=== PATIENT | female | born 2000 | race Caucasian/White ===

== ENCOUNTER 2024-12-05 17:37 | Emergency (ER) | payer MEDICAID, SELFPAY ==
--- NOTE | ~2024-12-05 | US_ITS ---
CLINICAL HISTORY: RLQ pain, cyst, r o torsion US pelvis transabdominal with Doppler Comparison: CT/SR - CT ABDOMEN PELVIS W IV CON - 12/06/24 00:29 EDT Findings: Uterus measures 8.2 x 4.1 x 4.4 cm. There is no uterine mass. Endometrium is within normal limits measuring 4 mm in thickness. Right ovary measures 5.5 x 4.2 x 5.6 cm. There is a simple right ovarian cyst measuring 4.4 x 4.1 x 4.7 cm. There is normal color Doppler and arterial/venous spectral tracings within the right ovary. Left ovary measures 2.6 x 1.4 x 2.5 cm. There is no left adnexal mass or fluid collection. There is normal color Doppler and arterial/venous spectral tracings within the left ovary. There is no free fluid in the pelvis. IMPRESSION: Simple right ovarian cyst measuring up to 4.7 cm. No ovarian torsion. Recommendations for f/u of simple ovarian cyst: (1) Pre-menopause: <= 5 cm No follow-up imaging recommended >5 cm - <=7 cm US f/u within 2-6 months recommended >7 cm US f/u within 2-6 months recommended (1) Simple Adnexal Cysts: U Consensus Conference Update on Follow-up and Reporting. Radiology. 2019;293 (2):359-371. This document has been electronically signed by: Matthias Lopes MD on 12/06/2024 03:10:19
--- NOTE | ~2024-12-05 | XR_ITS ---
CLINICAL HISTORY: CONSTIPATION 1 view abdomen Comparison: None provided Findings: No pneumoperitoneum or pneumatosis. No abnormal calcifications. No acute fractures. Large colonic stool burden. Nonobstructive bowel-gas pattern. IMPRESSION: Large colonic stool burden. This document has been electronically signed by: Waldo Dave MD on 12/05/2024 18:31:50
--- NOTE | ~2024-12-05 | CT_ITS ---
CLINICAL HISTORY: RLQ tender, nausea, chills, r o appy CT abdomen and pelvis with contrast Comparison: None provided Findings: The lung bases are clear. The liver, gallbladder, pancreas, spleen, adrenal glands, and kidneys are unremarkable. There is a [id number] amount of stool in the colon greatest in the right hemicolon. There is no bowel obstruction. The appendix is normal. There is no free fluid or free air. There is a 4.7 x 4.4 cm right ovarian cyst with Hounsfield units measuring about 26 which is greater than simple fluid. Uterus and left ovary are unremarkable. The bladder is unremarkable. There are no enlarged lymph nodes. The aorta and IVC are normal. There is no fracture or suspicious lytic or sclerotic lesion. IMPRESSION: 4.7 cm right ovarian cyst possibly hemorrhagic. Pelvic ultrasound would be recommended if there is any clinical concern for ovarian torsion. This document has been electronically signed by: Matthias Lopes MD on 12/06/2024 01:25:23
--- OUTSIDE RECORDS SUMMARY | 2024-12-05 15:40 | XMS_ITS | Encounter Summary ---
Author Organization [employer] Address [address] [facility] [address] [address] Care Team Providers Care Drilling Manager Name Role Phone Denisse Wood NP Primary Care Provider [phone] Reason for Visit * Reason Comments sick visit Encounter Details Date Type Department Care Team ([facility] st Contact Info) Description 12/05/2024 3:40 PM EDT Office Visit [facility] [address] [place] [address] Trev Dominguez MD [address] [place] [address] Right lower quadrant abdominal pain Social History Tobacco Use Types Packs/Day Years Used Date Smoking Tobacco: Never Passive Smoke Exposure: Never Smokeless Tobacco: Never Tobacco Cessation:Counseling Given: Not Answered Alcohol Use Standard Drinks/Week Comments Never 0 (1 standard drink = 0.6 oz pur e alcohol) Depression Answer Date Recorded Patient Health Questionnaire-9 Score 6 11/09/2024 Patient Health Questionnaire-9 Score 6 11/09/2024 Last PHQ-9: Questionnaire Data Not on file 0 11/09/2024 Housing Stability Answer Date Recorded What is your housing situation today? I have breezy robert 11/09/[address] you li ve. Do you have problems with any of the following? Pests such as bugs, ants, or mice;Mold 11/09/2024 Food Insecurity Answer Date Recorded Within the past 12 months, y ou worried that your food would run out before you got money to buy more: Never True 11/09/2024 Within the past 12 months,th e food you bought just didn't last and you didn't have enough money to get more: Never True Transportation Answer Date Recorded In the past 12 months, has l ack of transportation kept you from medical appts, meetings, work or from getting things needed for daily living? No 11/09/2024 Utilities Answer Date Recorded In the past 12 months, has t he electric, gas, oil or water company threatened to shut off services in your home? Yes 11/09/2024 Depression Answer Date Recorded Patient Health Questionnaire-2 Score 1 11/09/2024 Internet Access Answer Date Recorded Internet Access Q1 Yes 11/09/2024 Internet Access Q2 Not on file 11/09/2024 Comments No Sex and Gender Information Value Date Recorded Sex Assigned at Female 05/12/2023 2:52 PM EDT Legal Sex Female 2:49 PM EDT Gender Identity Female 05/12/2023 2:52 PM EDT Sexual Orientation Don't know 05/12/2023 2: 52 PM EDT documented as of this encounter Last Filed Vital Signs Vital Sign Reading Time Taken Comments Blood Pressure 138/87 12/05/2024 4:08 PM EDT Pulse 85 12/05/2024 4:08 PM EDT Temperature 37.3 C (99.2 F) 12/05/2024 4:08 PM EDT Respiratory Rate 18 12/05/2024 4:08 PM EDT Oxygen Saturation 99% 12/05/2024 4:08 PM EDT Inhaled Oxygen Concentration - - Weight 55.6 kg (122 lb 9.6 oz) 12/05/2024 4:08 P M EDT Height 167 cm (5' 5.75 ) 12/05/2024 4:08 PM EDT Body Mass Index 19.94 12/05/2024 4:08 PM EDT documented in this encounter Progress Notes * Trev Dominguez MD - 12/05/2024 3:40 PM EDT Subjective Patient ID: Adwoa Jara is a 24 y.o. female. HPI Adwoa has a history of Crohn's disease of the large and small intestine, IBS, followed by Dr. Vero Gale of [facility]. She had onset 3 days ago of pain across lower abdominal and to right of umbilicus. Started as dull ache, yesterday pain worsened, became constant, is now sharp hurts to push on it, feels bloated, constipated, has chills today. Had nausea yesterday, took Zofran with some relief. Tylenol helps chills, doesn't help pain much. Appetite is OK today. No fever, urinary symptoms. No h/o abdominal surgery. Lives with boyfriend. LMP=3 weeks ago. Uses [employer]. Works at [employer] in [employer] in [place]. Never smoked. Occasional EtOH. Patient Active Problem List Diagnosis Date Noted PND (post-nasal drip) 11/09/2024 Blurry vision 11/09/2024 Crohn's disease (CMS/HCC) ([facility]) 2024 Irregular periods 2024 Chronic maxillary sinusitis 2024 Crohn's disease of both small and large intestine without complication ([facility]) 10/24/2023 Healthcare maintenance 10/24/2023 Seasonal allergic rhinitis due to pollen 10/24/2023 HSV infection 10/23/2023 Cervicitis 05/10/2023 Vulvar burning 05/10/2023 Herpes simplex infection of genitourinary system 02/14/2021 IBS (irritable bowel syndrome) 09/29/2018 Patient Active Problem List Diagnosis Date Noted PND (post-nasal drip) 11/09/2024 Blurry vision 11/09/2024 Crohn's disease (CMS/HCC) ([facility]) 2024 Irregular periods 2024 Chronic maxillary sinusitis 2024 Crohn's disease of both small and large intestine without complication ([facility]) 10/24/2023 Healthcare maintenance 10/24/2023 Seasonal allergic rhinitis due to pollen 10/24/2023 HSV infection 10/23/2023 Cervicitis 05/10/2023 Vulvar burning 05/10/2023 Herpes simplex infection of genitourinary system 02/14/2021 IBS (irritable bowel syndrome) 09/29/2018 The following portions of the chart were reviewed this encounter and updated as appropriate: Review of Systems Constitutional: Negative for fever. Respiratory: Negative for shortness of breath. Cardiovascular: Negative for chest pain. Gastrointestinal: Positive for abdominal pain, constipation and nausea. Negative for vomiting. Genitourinary: Negative for dysuria. Skin: Negative for rash. Neurological: Negative for headaches. Objective Physical Exam Constitutional: Appearance: Normal appearance. HENT: Right Ear: Tympanic membrane, ear canal and external ear normal. Left Ear: Tympanic membrane, ear canal and external ear normal. Nose: Nose normal. Mouth/Throat: Mouth: Mucous membranes are moist. Pharynx: Oropharynx is clear. Eyes: Conjunctiva/sclera: Conjunctivae normal. Pupils: Pupils are equal, round, and reactive to light. Cardiovascular: Rate and Rhythm: Normal rate and regular rhythm. Heart sounds: No murmur heard. Pulmonary: Effort: Pulmonary effort is normal. Breath sounds: Normal breath sounds. Abdominal: General: Abdomen is flat. Palpations: Abdomen is soft. Tenderness: There is abdominal tenderness (RLQ). There is guarding and rebound. Comments: Positive psoas and obturator signs Musculoskeletal: General: Normal range of motion. Cervical back: No tenderness. Skin: Findings: No rash. Neurological: Mental Status: She is alert. Gait: Gait is intact. Psychiatric: Mood and Affect: Mood normal. Behavior: Behavior normal. Procedures Assessment/Plan Diagnoses and all orders for this visit: Right lower quadrant abdominal pain U/a and UCG neg. ? Acute appendicitis versus Crohn's flare versus pain of ovarian origin versus? Adwoa is going to the ED now. - POCT Urinalysis - POCT Urine documented in this encounter Plan of Treatment Upcoming Encounters Date Type Department Care Team (Late st Contact Info) Description 01/08/2025 1:00 PM EST Procedure Visit [facility] [address] [place] [address] Denisse Wood NP [address] [place] [address] 04/08/2025 1:00 PM EST Office Visit [facility] [address] [place] [address] Olamide Betancur, HARSH [address] [place] [address] documented as of this encounter Procedures Procedure Name Priority Date/Time Associated Diagnosis Comments POCT , URINE Routine 12/05/2024 4:27 PM EDT Right lower quadrant abdominal pain POCT URINALYSIS DIPSTICK Routine 12/05/2024 4:27 PM EDT Right lower quadrant abdominal pain documented in this encounter Results * POCT Urine (12/05/2024 4:27 PM EDT) Preg Test, Ur Negative Negative, Indeterminate, None Detected, Invalid, Specimen unsatisfactory for evaluation, Weakly Positive, 2+ QC Media Lot # [id number] Lot# Expiration Date Urine 12/05/2024 4:27 PM EDT us Trev Dominguez MD POINT OF CARE TEST ENTER/EDIT OR DERABLES Final Result * POCT Urinalysis (12/05/2024 4:27 PM EDT) Color, UA Light Yellow Clarity, UA Clear Glucose, UA Negative Bilirubin, UA Negative Ketones, UA Negative Spec Grav, UA 1.015 Blood, UA Negative Negative, None Detected pH, UA 6.5 Protein, UA Negative Urobilinogen, UA 0.2 Leukocytes, UA Negative Negative, Rare, Trace Nitrite, UA Negative Negative, None Detected Appearance, UA light yellow Urine (Urine, Random) 12/05/2024 4:27 PM EDT us Trev Dominguez MD POINT OF CARE TEST ENTER/EDIT OR DERABLES Final Result documented in this encounter Visit Diagnoses Diagnosis Right lower quadrant abdominal pain documented in this encounter Additional Health Concerns Assessment Noted Time PHQ-9 Depression Total Score: 6 11/10/19 25 4:28 PM EDT documented as of this encounter Care Teams Drilling Manager Relationship Specialty Start Date End Date Denisse Wood NP [address] [place] [id number] PCP - General Family Medicine 10/24/23 documented as of this encounter
[2024-12-05 17:56] VITALS: BP 148/79; PULSE 77; RESP 16; TEMP 36.8; O2SAT 97
--- NOTE | 2024-12-05 17:56 | ED_ITS ---
HPI - Abdominal Pain General Chief Complaint: Abdominal Pain Stated Complaint: right side abd pain/appendicitis? from UC Time Seen by Provider: 12/05/24 21:53 History of Present Illness ED Provider: Venkatesh Rodriguez MD HPI narrative: We will 24-year-old female with no surgical history. She has a history of irregular menses 2 months ago started a new progesterone only oral contraceptive. She feels she had her period about 3 weeks ago which was unremarkable. She started getting some lower abdominal pain 3-4 nights ago intermittent mild initially today got a lot worse. Patient went to the urgent care and was sent here for evaluation. She does report chills no vomiting. No burning dysuria or flank pain. Small BM and passing flatus today. Related Data Previous Rx's ?Medication ?Instructions ?Recorded docusate sodium 100 mg capsule 100 mg PO BID #20 caps 12/06/24 (Colace) polyethylene glycol 3350 17 17 g PO DAILY #119 grams 1 gram/dose oral powder (Miralax) Allergies Allergy/AdvReac Type Severity Reaction Status Date / Time No Known Allergies Allergy Verified 12/05/24 17:59 [facility] Social History Social History Substance Use Type: Hallucinogens and Marijuana Physical Exam ED Exam Exam: EXAM: Gen: Alert, awake, well appearing, well hydrated. Head: Atraumatic Eyes: Anicteric, Normal conjunctiva. ENT: Moist mucosa, no pallor. ? Neck: Supple. Skin: ?No observable rash or bruising on exposed or examined skin Respiratory: Breathing comfortably, No distress.Clear to auscultation bilaterally, symmetric chest expansion, No wheeze, rales, ronchi. Cardiovascular: Regular rate and rhythm. No murmurs or rub. Well perfused periphery, warm extremities. No edema. ? Abdominal: Moderate right lower quadrant tenderness. Soft, no objective distension. No palpable masses or obvious organomegaly. ?No guarding, no rebound tenderness or other peritoneal findings. : No flank tenderness. Pelvic deferred Neuro: Alert. Gross movement of all extremities intact. ? Psych: Calm. Cooperative. MSK: No grossly visible deformity. Vital signs: See flowsheet Vital Signs: Vital Signs - 24 hr 12/05/24 17:56 12/05/24 22:04 12/06/24 01:15 Temperature 98.2 F 98.4 F 98 F Pulse Rate 77 93 78 Respiratory Rate 16 18 16 Blood Pressure 148/79 H 122/81 109/68 Pulse Oximetry 97 100 96 Oxygen Delivery Method Room Air Room Air Room Air 12/06/24 02:56 Temperature 98 F Pulse Rate 78 Respiratory Rate 16 Blood Pressure 109/68 Pulse Oximetry 96 Oxygen Delivery Method Room Air BMI result Body Mass Index 20.0 Course Course Course Narrative: This is a Rapid Medical Examination (RME) performed by Shelia Diehl PA-C in triage. Full HPI, ROS, assessment and treatment plan per primary provider in the Main ED. Hx: 24 yo F hx Crohns here from PCP office for eval of RLQ pain x3 days. admits to recent constipation and abdominal bloating. last BM this morning, small amount of stool. low grade temp 99 at PCP, advised to come to ED to r/o appe. no hx abdominal surgery. LMP 3 wks ago. Plan: labs, UA, preg, KUB Reevaluation(s) Reevaluation #1: 3:00 AM 12[facility]06[facility] Imaging reassuring. Patient is quite comfortable at this point there has been no fever hemodynamic instability or escalation of the pain. Patient is non with no evidence of ovarian torsion. She is likely constipated. There was no evidence of appendicitis or other acute surgical process. Plan for laxative and patient reassurance and close forms analysis manager follow up Medical Decision Making Medical Decision Making MDM Narrative: Medical Decision Making: [age] female right lower quadrant pain constipation more abrupt increase in the level of pain today. Given the chills and the rest of the history and exam reasonable to exclude appendicitis. After labs beta hCG negative excluding any -related complication CT with oral contrast showed constipation no also right-sided moderate sized ovarian cyst. Patient will need endocavitary ultrasound which I am not able to perform myself given I do not have access to and a cavitary your probes in the point of care ultrasound available to me. Approximately 01:00 I asked radiology team to call in on-call mri technologist. Patient also significantly constipated we will need laxative. She does have an established OBGYN at [facility] Preliminary Favored Differential Diagnosis: Appendicitis, ovarian torsion, ovarian cyst, related complication, among additional considered etiologies Testing Interpreted Independently: ?See below for details Radiology or Lab testing Results Reviewed: ?See below for details Consults: ?See below for details Independent Historians/External Chart Reviews: ?See below for details Social Determinants of Health Impacting MDM/Planning: ?See below for details Lab Data 12/05/24 18:06 12/05/24 18:06 Labs: Lab Results 12/05/24 Range/Units 18:06 WBC 9.3 (4.8-10.8) X10*3/uL RBC 4.29 (4.20-5.50) X10*6/uL Hgb 14.1 (12.0-16.0) g/dl Hct 41.1 (37.0-47.0) % MCV 95.8 (80.0-98.0) fL MCH 32.9 (27.0-33.0) pg MCHC 34.3 (31.0-35.0) g/dl RDW 11.9 (11.0-16.0) % Plt Count 268 (160-400) X10*3/uL MPV 10.4 (9.4-12.3) fL Immature Gran % (Auto) 0.9 H (0.0-0.4) % Neut % (Auto) 62.5 (45-73) % Lymph % (Auto) 30.6 (20-40) % Vermilion % (Auto) 5.6 (2-11) % Eos % (Auto) 0.2 (0-4) % Baso % (Auto) 0.2 (0-2) % Lymph # (Auto) 2.8 (1.2-4.9) X10*3/uL Vermilion # (Auto) 0.5 (0.1-1.2) X10*3/uL Eos # (Auto) 0.0 (0.0-0.4) X10*3/uL Baso # (Auto) 0.0 (0.0-0.2) X10*3/uL Abs Immat Gran (auto) 0.08 H (0.00-0.03) X10*3/uL Absolute Neuts (auto) 5.8 (2.0-8.3) x10*3/uL Absolute Nucleated RBC 0.000 (0.0-0.012) X10*3/uL Nucleated RBC % (auto) 0.0 (0.0-0.2) /100WBC Sodium 138 (135-145) mmol/L Potassium 3.9 (3.3-5.1) mmol/L Chloride 109 H (96-108) mmol/L Carbon Dioxide 23 (22-29) mmol/L Anion Gap 10 L (12-20) BUN 7 L (9-16) mg/dL Creatinine 0.71 (0.5-1.4) mg/dL Estim Creat Clear Calc 105.0 Estimated GFR > 60 Random Glucose 173 H (60-115) mg/dL Calcium 9.6 (8.4-10.2) mg/dL Magnesium 1.8 (1.6-2.6) mg/dL Total Bilirubin 0.4 (0.0-1.0) mg/dL AST 25 (5-31) U/L ALT 15 (0-31) U/L Alkaline Phosphatase 43 (39-117) U/L C-Reactive Protein < 0.10 (< or = 0.50) mg/dL Total Protein 7.7 (6.5-8.0) g/dL Albumin 4.9 (3.5-5.0) g/dL Lipase 30 (8-78) U/L Beta HCG, Quant < 2 mIU/mL Radiology Impression Discussion of test interpretation with radiology: I have reviewed the radiologist's reading. (No torsion on TV U.S. CT with right ovarian cyst and constipation) Medications Administered Discontinued Medications Generic Name Dose Route Start Last Admin Trade Name Freq PRN Reason Stop Dose Admin Diatrizoate Meglum/Diatrizoate Sod 30 ml 12/06/24 00:38 12/06/24 00:39 Diatrizoate Meglumine, Sodium 30 Ml Solution PO 12/06/24 00:39 30 ml ONCE ONE Administration Iohexol 85 ml 12/06/24 00:38 12/06/24 00:38 Iohexol 350 Mg/Ml 100 Ml Infus..Btl IV 12/06/24 00:39 85 ml ONCE ONE Administration Discharge Plan Discharge Clinical Impression: Ovarian cyst, Constipation Patient Disposition: Home, Self-Care Instructions: Ovarian Cyst (ED), Constipation (ED) Additional Instructions: _ DISCHARGE DIAGNOSES: Ovarian cyst Constipation HISTORY OF PRESENTATION: ?Lower abdominal pain EMERGENCY DEPARTMENT COURSE,TESTS, TREATMENTS: While in the ED today you had a CT of the abdomen and pelvis which showed a right-sided ovarian cyst and subsequently had ultrasound which showed: Your lab work and urinalysis were reassuring. Your test was negative. You also had constipation seen on your CT DISCHARGE MEDICATIONS: ?[We have made no changes to your regular medication regimen] we added a laxative and stool softeners FOLLOW-UP: ?Call your primary or general physician soon as possible to discuss your symptoms, your ED visit and to discuss follow up plans Call your [facility] OBGYN for follow up, call him tomorrow to establish follow up appointment you will need a repeat ultrasound in a few weeks INSTRUCTIONS ?& RETURN PRECAUTIONS: If any symptoms change first call your primary physician, if it is after-hours your primary doctors office should have a provider financial reporting consultant you can speak with. If the symptoms are severe or very concerning to you then call 911 or return to the ED. Return back to either here or [facility] Emergency Department for severe sudden lower right-sided abdomen pain as this could be an emergent problem or twisting of your ovary the complete your ovary at risk Venkatesh Rodriguez MD Emergency Physician [facility] Prescriptions: New docusate sodium [Colace] 100 mg capsule 100 mg PO BID Qty: 20 0RF polyethylene glycol 3350 [Miralax] 17 gram/dose powder 17 g PO DAILY Qty: 119 0RF Interventions: ED Discharge Assessment Last Done: 12/06/24 02:56 Discharge Date/Time: 12/06/24 02:57 Print Language: Emirati
[2024-12-05 18:14] LABS: MANUAL DIFF FLAG NO
[2024-12-05 18:38] LABS: Hematocrit 41.1 % (37.0-47.0); Hemoglobin 14.1 g/dl (12.0-16.0); Imm Gran Abs Auto 0.08 X10*3/uL (0.00-0.03); Imm Gran Pct Auto 0.9 % (0.0-0.4); Lymphocytes Absolute Auto 2.8 X10*3/uL (1.2-4.9); Mean Corpuscular HGB Conc 34.3 g/dl (31.0-35.0); Mean Corpuscular Hemoglobin 32.9 pg (27.0-33.0); Mean Corpuscular Volume 95.8 fL (80.0-98.0); NRBC Abs Auto 0.000 X10*3/uL (0.0-0.012); NRBC Pct Auto 0.0 /100WBC (0.0-0.2); Platelet Count 268 X10*3/uL (160-400); Red Blood Count 4.29 X10*6/uL (4.20-5.50); White Blood Count 9.3 X10*3/uL (4.8-10.8)
[2024-12-05 18:44] LABS: Alanine Aminotransferase 15 U/L (0-31); Albumin Level 4.9 g/dL (3.5-5.0); Alkaline Phosphatase 43 U/L (39-117); Anion Gap 10 (12-20); Aspartate Amino Transferase 25 U/L (5-31); Blood Urea Nitrogen 7 mg/dL (9-16); Calcium 9.6 mg/dL (8.4-10.2); Carbon Dioxide 23 mmol/L (22-29); Chloride 109 mmol/L (96-108); Creatinine Clr Calc Pharmacy 105.0; Estimated Glomerular Filt Rate > 60; Lipase 30 U/L (8-78); Magnesium 1.8 mg/dL (1.6-2.6); Potassium 3.9 mmol/L (3.3-5.1); Sodium 138 mmol/L (135-145); Total Protein 7.7 g/dL (6.5-8.0)
[2024-12-05 22:04] VITALS: BP 122/81; PULSE 93; RESP 18; TEMP 36.9; O2SAT 100
--- OUTSIDE RECORDS SUMMARY | 2024-12-05 22:48 | XMS_ITS | Encounter Summary ---
Author Organization [facility] Address [address] [facility] [address] [place] [phone] Phone Care Team Providers Care Record Tester Name Role Phone Vicky Mar CNP Primary Care Provide r Waldo Coats DO Unavailable Encounter Details Date Type Department Care Team (Latest Contact Info) Description 02/17/2021 Transcribe Orders [facility] [address] [place] [address] Vicky Mar CNP [address] [facility] [place] [address] [email or web address] Crohn's disease with complication, unspecified gastrointestinal tract location (Primary Dx) Social History Tobacco Use Types Packs/Day Years Used Date Smoking Tobacco: Never Smokeless Tobacco: Never Alcohol Use Standard Drinks/Week Comments Not Currently 0 (1 standard drink = 0.6 oz pur e alcohol) Comments Unknown Sex and Gender Information Value Date Recorded Sex Assigned at Female 11/12/2019 10:12 PM EDT Legal Sex Female 10:24 PM EDT Gender Identity Female 11/12/2019 10:12 PM EDT Sexual Orientation Not on file documented as of this encounter Plan of Treatment Not on file documented as of this encounter Visit Diagnoses Diagnosis Crohn's disease with complication, unspecified gastrointestinal tract location- Primary documented in this encounter Additional Health Concerns Infection Onset Date Last Indicated Resolved Time CoV-Risk 02/08/2023 02/08/2023 02/19/2023 1:22 AM EST documented as of this encounter Care Teams Record Tester Relationship Specialty Start Date End Date Vicky Mar CNP [address] [place] [address] PCP - General 02/17/17 Waldo Coats DO [address] [place] [address] Insurance Assigned Provider 05/21/2306/23 documented as of this encounter Additional Source Comments The information contained in this document represents components of the legal health record. It is not the complete legal health record.[facility]
--- OUTSIDE RECORDS SUMMARY | 2024-12-05 22:48 | XMS_ITS | Encounter Summary ---
Author Organization [employer] Address [address] [facility] [address], [place] [address] Care Team Providers Care Bus Escort Name Role Phone Denisse Wood NP Primary Care Provider [phone] Encounter Details Date Type Department Care Team ([facility] st Contact Info) Description 08/24/2024 Orders Only [facility] [address] [place] [address] Christianne Carroll MD [address] [place] [address] Herpes simplex infection of genitourinary system (Primary Dx) Social History Tobacco Use Types Packs/Day Years Used Date Smoking Tobacco: Never Alcohol Use Standard Drinks/Week Comments Never 0 (1 standard drink = 0.6 oz pur e alcohol) Depression Answer Date Recorded Patient Health Questionnaire-9 Score 8 10/24/2023 Patient Health Questionnaire-9 Score 8 10/24/2023 Last PHQ-9: Questionnaire Data Not on file 0 10/24/2023 Housing Stability Answer Date Recorded What is your housing situation today? I have breezy jones 10/24/[address] you li ve. Do you have problems with any of the following? None of the above 10/24/2023 Food Insecurity Answer Date Recorded Within the past 12 months, y ou worried that your food would run out before you got money to buy more: Never True 10/24/2023 Within the past 12 months,th e food you bought just didn't last and you didn't have enough money to get more: Never True 10/2023 Transportation Answer Date Recorded In the past 12 months, has l ack of transportation kept you from medical appts, meetings, work or from getting things needed for daily living? No 10/24/2023 Utilities Answer Date Recorded In the past 12 months, has t he electric, gas, oil or water company threatened to shut off services in your home? No 10/24/2023 Depression Answer Date Recorded Patient Health Questionnaire-2 Score 2 10/24/2023 Internet Access Answer Date Recorded Internet Access Q1 Yes 10/24/2023 Internet Access Q2 Not on file 10/24/2023 Comments No Sex and Gender Information Value Date Recorded Sex Assigned at Female 05/12/2023 2:52 PM EDT Legal Sex Female 2:49 PM EDT Gender Identity Female 05/12/2023 2:52 PM EDT Sexual Orientation Don't know 05/12/2023 2: 52 PM EDT documented as of this encounter Plan of Treatment Upcoming Encounters Date Type Department Care Team (Late st Contact Info) Description 01/08/2025 1:00 PM EST Procedure Visit [facility] [address] [place] [address] Denisse Wood NP [address] [place] [address] 04/08/2025 1:00 PM EST Office Visit [facility] [address] [place] [address] Olamide Betancur, OD [address] [place] [address] documented as of this encounter Visit Diagnoses Diagnosis Herpes simplex infection of genitourinary system- Primary documented in this encounter Additional Health Concerns Assessment Noted Time PHQ-9 Depression Total Score: 8 10/24/19 24 9:55 AM EDT documented as of this encounter Care Teams Bus Escort Relationship Specialty Start Date End Date Denisse Wood NP [address] [place] [address] PCP - General Family Medicine 10/24/23 documented as of this encounter
--- OUTSIDE RECORDS SUMMARY | 2024-12-05 22:48 | XMS_ITS | Clinical Summary ---
Author Organization [employer] Address [address] [place] [address] [address] [address] Care Team Providers Care Fish Receiver Name Role Phone Denisse Wood NP Primary Care Provider [phone] Allergies No known active allergies Medications Estevanmiguel angel, 2 Pen, 40 MG/0.4ML Pen-injector Kit pen-injector Inject 40 mg under the skin every 14 (fourteen) days. 4 Active hydrOXYzine HCl (Atarax) 50 MG tablet Take 50 mg by mouth 3 times daily. 4 Active lidocaine (Lidoderm) 5 % patchIndications:L eft upper quadrant abdominal pain Apply 1 patch topically Once per day. Remove & discard patch within 12 hours or as directed by MD. 30 patch 4 Active triamcinolone (Kenalog) 0.1 % ointmentIndication s:Rash and nonspecific skin eruption Apply topically 2 times daily. 15 g 1 5 Active betamethasone, augmented, (Diprolene) 0.05 % ointmentIndication s:Eczema, unspecified type Apply topically 2 times daily. 15 g 1 5 Active Diclofenac Sodium 1 % gel Apply thin layer by topical route (quantity as directed on package insert) to affected area of pain 3 times daily as needed. 50 g 3 5 Active ondansetron (Zofran) 4 MG tabletIndications: Nausea Take 1 tablet by mouth every 8 hours as needed for nausea/vomiti ng 30 tablet 1 5 Active valACYclovir (Valtrex) 500 MG tabletIndications: Herpes simplex infection of genitourinary system Take 1 tablet (500 mg) by mouth Once per day. 90 tablet 3 5 08/25/19 26 Active fluticasone (Flonase) 50 MCG/ACT nasal sprayIndications:C hronic maxillary sinusitis USE 2 SPRAYS IN EACH NOSTRIL ONCE EVERY DAY. SHAKE GENTLY. CLEAN TIP AND REPLACE CAP AFTER USE. 48 mL Active Active Problems Problem Noted Date Diagnosed Date PND (post-nasal drip) 11/09/2024 Assessment & Plan (11/26/2024 1:45 PM EDT): Blurry vision 11/09/2024 Assessment & Plan (11/26/2024 1:45 PM EDT): Crohn's disease ([facility]) 2024 Assessment & Plan (11/26/2024 1:45 PM EDT): Irregular periods 2024 Chronic maxillary sinusitis 2024 Assessment & Plan (2024 2:26 PM EST): Pt with underlying allergic rhinitis, Increase in sinus symptoms this winter after URI, Hestiant to use abx Trial topical steroids, discuss abx with gi team Referral to ENT If no improvement rx augmentin or doxycline Crohn's disease of both smal l and large intestine without complication 10/24/2023 Assessment & Plan (10/24/2023 7:19 PM EDT): Pt stable currently on Humira followed by [facility] maintenance 10/24/2023 Assessment & Plan (10/24/2023 7:20 PM EDT): Low cad risk, will schedule pap at follow up , reviewed contraceptive options, pt is contemplative today Seasonal allergic rhinitis due to pollen 024 Assessment & Plan (10/24/2023 7:20 PM EDT): Pt endorses intermittent morning sore throat and pnd, trial otc antihistamines, update for failure to improve HSV infection 10/23/2023 Cervicitis 05/10/2023 Vulvar burning 05/10/2023 Herpes simplex infection of genitourinary system 02/14/2021 Overview (2024): Type 1 IBS (irritable bowel syndrome) 09/29/2018 Encounters Date Type Department Care Team Description 12/05/2024 3:40 PM EDT Office Visit [facility] [address] [place] [address] Trev Dominguez MD Right lower quadrant abdominal pain 12/05/2024 Telephone [facility] [address] [place] [place] [address] Trev Dominguez MD ED expect 12/05/2024 Travel 12/03/2024 Travel 11/26/[address] [address] Ladonna Mclean RN 11/09/2024 3:45 PM EDT Office Visit [address] [address] Denisse Wood NP PND (post-nasal drip) (Primary Dx); Blurry vision; Crohn's disease with complication, unspecified gastrointestinal tract location ([facility]); Vision screen without abnormal findings 11/09/2024 Travel 11/08/[address] [address] Denisse Wood NP CHARTPREP 11/06/[address] [address] Denisse Wood NP Nurse Triage 10/30/[address] [address] Denisse Wood NP December Recall 10/03/[address] [address] Denisse Wood NP Oct recall 09/30/[address] [address] [place], Kelsea, VECTOR CONTROL ASSISTANT Chronic maxillary sinusitis from Last 3 Months Social History Tobacco Use Types Packs/Day Years [...] is your housing situation today? I have breezygodfrey jones 11/09/[address] you li [...] Don't know 05/12/2023 2: 52 PM EDT Last Filed Vital Signs Vital Sign Reading [...] Mass Index 19.94 12/05/2024 4:08 PM EDT Plan of Treatment Upcoming Encounters Date Type Department Care Team (Late st Contact Info) Description 01/08/2025 1:00 PM EST Procedure Visit [facility] [address] [place] [address] Denisse Wood, RAILWAYS ASSISTANT [address] [place] [address] 04/08/2025 1:00 PM EST Office Visit [facility] [address] [place] [address] Olamide Betancur, OD [address] [place] [address] Health Maintenance Due Date Last Done Comments HIV Screening 2000 Disability Screening 2000 Family Planning (PISQ) 2015 HPV Vaccines (1 - 3-dose series) 2015 Hepatitis C Screening 2018 Pap Smear 2021 DTaP/Tdap/Td Vaccines (4 - Td or Tdap) 07/24/2022 07/24/2012, 05/12/2001, 01/12/2001 COVID-19 Vaccine ( - season) 2024 02/21/2021, 07/28/2020, 06/30/2020 Influenza Vaccine (#1) 2024 Alcohol/Substance Use Screening 11/09/2025 11/09/2024 Depression Screening 11/09/2025 11/09/2024, 11/10/19 25 SDOH Screening 11/09/2025 11/09/2024 Tobacco Screening 12/05/2025 12/05/2024 Zoster Vaccines (1 of 2) 2050 RSV Patients and Patients Aged 60 years or older (1 - 1-dose 75+ series) 2075 HIB Vaccines Aged Out 05/12/2001, 01/12/2001 No lo nger eligible based on patient's age to complete this topic Hepatitis B Vaccines Completed 10/11/2014, 06/06/2014, 07/24/2012 IPV Vaccines Completed 09/22/2015, 06/15, 05/12/2001, Additional history exists Meningococcal Vaccine Completed 09/19/2017, 015 Hepatitis A Vaccines Aged Out No long er eligible based on patient's age to complete this topic Meningococcal B Vaccine Aged Out No l onger eligible based on patient's age to complete this topic Pneumococcal Vaccine: Pediatrics (0 to 5 Years) and At-Risk Patients (6 to 49) Years Aged Out No longer eligible based on patient's age to complete this topic RSV under 20 months Aged Out No longe r eligible based on patient's age to complete this topic Rotavirus Vaccines Aged Out No longer eligible based on patient's age to complete this topic Procedures Procedure Name Priority Date/Time Associated Diagnosis Comments POCT , URINE Routine 12/05/2024 4:27 PM EDT Right lower quadrant abdominal pain POCT URINALYSIS DIPSTICK Routine 12/05/2024 4:27 PM EDT Right lower quadrant abdominal pain from Last 3 Months Results * POCT Urine (12/05/2024 4:27 PM EDT) Preg Test, Ur Negative Negative, Indeterminate, None Detected, Invalid, Specimen unsatisfactory for evaluation, Weakly Positive, 2+ QC Media Lot # [id number] Lot# Expiration Date [id number] Urine 12/05/2024 4:27 PM EDT Trev Dominguez MD POINT OF CARE TEST [...] Urine (Urine, Random) 12/05/2024 4:27 PM EDT Trev Dominguez MD POINT OF CARE TEST ENTER/EDIT OR DERABLES Final Result from Last 3 Months [facility] [employer] Care Teams Fish Receiver Relationship Specialty Start Date End Date Denisse Wood NP [address] [place] [address] PCP - General Family Medicine 10/24/23
--- OUTSIDE RECORDS SUMMARY | 2024-12-05 22:48 | XMS_ITS | Encounter Summary ---
Author Organization [employer] Address [address] [facility] [address], [place] [address] Care Team Providers Care Rn Building Name Role Phone IsraelDenisse SKYLA Primary Care Provider [phone] Encounter Details Date Type Department Care Team (Latest Contact Info) Description 12/03/2024 Travel Social History Tobacco Use Types Packs/Day Years Used Date Smoking Tobacco: Never Passive Smoke Exposure: Never Smokeless Tobacco: Never Alcohol Use Standard Drinks/Week Comments Never 0 (1 standard drink = 0.6 oz pur e alcohol) Depression Answer Date Recorded Patient Health Questionnaire-9 Score 6 11/09/2024 Patient Health Questionnaire-9 Score 6 11/09/2024 Last PHQ-9: Questionnaire Data Not on file 0 11/09/2024 Housing Stability Answer Date Recorded What is your housing situation today? I have breezy jones 11/09/[address] you [...] Description 01/08/2025 1:00 PM EST Procedure Visit [facility] [address] [place] [address] Denisse Wood NP [address] [place] [address] 04/08/2025 1:00 PM EST Office Visit [facility] [address] [place] [address] TarkaOlamide, OD [address] [place] [address] documented as of this encounter Visit Diagnoses Not on filedocumented in this encounter Additional Health Concerns Assessment Noted Time PHQ-9 Depression Total Score: 6 11/10/19 25 4:28 PM EDT documented as of this encounter Care Teams Rn Building Relationship Specialty Start Date End Date Denisse Wood NP [address] [place] [address] PCP - General Family Medicine 10/24/23 documented as of this encounter
--- OUTSIDE RECORDS SUMMARY | 2024-12-05 22:48 | XMS_ITS | Clinical Summary ---
Author Organization [facility] [address] [facility] Address [address] [place] [address] Phone Care Team Providers Care Courtesy Driver Name Role Phone Denisse Wood JUAN Primary Care Provider [phone] Allergies No known active allergies Medications valACYclovir (VALTREX) 500 mg tablet Take 1 tablet (500 mg total) by mouth 1 (one) time each day. 02/25/19 25 Active ondansetron (ZOFRAN) 4 mg tablet Take 1 tablet (4 mg total) by mouth every 8 (eight) hours if needed. for nausea and vomiting 04/11/19 25 Active fluticasone propionate (FLONASE) 50 mcg/actuation nasal spray PLEASE SEE ATTACHED FOR DETAILED DIRECTIONS 04/06/19 25 Active betamethasone, augmented, (DIPROLENE) 0.05 % ointment Apply 1 Application topically 2 (two) times a day. APPLY TO AFFECTED AREA 04/06/19 25 Active adalimumab-bwwd (Hadlima,CF, PushTouch) 40 mg/0.4 mL auto-injectorIndicat ions:Crohn's disease with complication, unspecified gastrointestinal tract location (CMS/HCC V24, CMS/HCC V28) INJECT 0.4 ML (40 MG TOTAL) UNDER THE SKIN EVERY 14 (FOURTEEN) DAYS. 2 each 5 07/21/19 25 Active adalimumab (Humira,CF, Pen) 40 mg/0.4 mL penIndications:Crohn 's disease with complication, unspecified gastrointestinal tract location (CMS/HCC V24, CMS/HCC V28) Inject 0.4 mL (40 mg total) under the skin every 14 (fourteen) days. 1 each 2 08/21/19 25 Active Surgical History Surgery Date Site/Laterality Comments COLONOSCOPY W/ BIOPSIES 04/21/2023 severe active ileitis, no active colitis COLONOSCOPY W/ BIOPSIES 04/16/2021 no active ileitis, moderate active de la cruz colitis COLONOSCOPY W/ BIOPSIES 05/19/2020 mild ileitis and inactive chronic colitis ESOPHAGOGASTRODUODENOSCOPY 05/19/2020 inactive chronic gastritis, nl duodenum and esopahgus bx COLONOSCOPY W/ BIOPSIES 04/19/2018 active ileitis and patchy mild colitis ESOPHAGOGASTRODUODENOSCOPY 04/19/2018 nl Medical History Medical History Date Comments Crohn's disease of both smal l and large intestine ([facility] V24, [facility] V28) 04/19/2018 mild ileitis, lef t sided colitis Social History Tobacco Use Types Packs/Day Years Used Date Smoking Tobacco: Never Tobacco Cessation:Counseling Given: Not Answered Alcohol Use Standard Drinks/Week Comments Never 0 (1 standard drink = 0.6 oz pur e alcohol) Comments Unknown Sex and Gender Information Value Date Recorded Sex Assigned at Not on file Legal Sex Female 10:58 PM EST Gender Identity Female 01/02/2024 10:58 AM EST Sexual Orientation Not on file Obstetrics History Last Filed Vital Signs Vital Sign Reading Time Taken Comments Blood Pressure - - Pulse - - Temperature - - Respiratory Rate - - Oxygen Saturation - - Inhaled Oxygen Concentration - - Weight 56.2 kg (124 lb) 04/19/2024 1:35 PM EST Height 165.1 cm (5' 5 ) 04/19/2024 1:35 PM EST Body Mass Index 20.63 04/19/2024 1:35 PM EST Plan of Treatment Upcoming Encounters Date Type Department Care Team (Late st Contact Info) Description 01/17/2025 2:20 PM EST Office Visit Gastroenterology - [address] [facility] [address] [place] [phone] Farrah Goldberg PA [address] [facility] [address] Kevin [address] [place], [place] [phone] Health Maintenance Due Date Last Done Comments Gonorrhea/Chlamydia Screening 2000 HPV Vaccines (1 - 3-dose series) 2015 Cervical Cancer Screening: Pap Smear 2021 HIV Screening 01/17/2022 Social Influencers of Health Screening 01/17/2022 DTaP,Tdap,and Td Vaccines (4 - Td or Tdap) 07/24/2022 07/24/2012, 05/12/2001, 01/12/2001 Depression Screening 02/15/2024 COVID-19 Vaccine (4 - 2024- season) 2024 02/21/2021, 07/28/2020, 06/30/2020 Influenza Vaccine (#1) 2024 RSV Immunization Adult Patients (1 - 1-dose 75+ series) 2075 HIB Vaccines Aged Out 05/12/2001, 01/12/2001 No lo nger eligible based on patient's age to complete this topic MMR Vaccines Completed 06/06/2014, 09/18/2001 Varicella Vaccines Completed 07/05/2014, 0 08/11/2012, 07/24/2012 Hepatitis B Vaccines Completed 10/11/2014, 06/06/2014, 07/24/2012 IPV Vaccines Completed 09/22/2015, 06/15, 05/12/2001, Additional history exists Meningococcal ACWY Vaccine Completed 09/19/2017, Hepatitis C Screening Completed 02/19/2021 Hepatitis A Vaccines Aged Out No long er eligible based on patient's age to complete this topic Meningococcal B Vaccine Aged Out No l onger eligible based on patient's age to complete this topic Pneumococcal Vaccine: Pediatrics (0 to 5 Years) and At-Risk Patients (6 to 49 Years) Aged Out No longer eligible based on patient's age to complete this topic RSV Immunization Patients Under 20 months Aged Out No longer eligible based on patient's age to complete this topic Insurance MEDICAID - [place] Care Teams Courtesy Driver Relationship Specialty Start Date End Date Denisse Wood FNP [address] [place] [id number] PCP - General Nurse Practitioner 02/27/24
--- OUTSIDE RECORDS SUMMARY | 2024-12-05 22:48 | XMS_ITS | Encounter Summary ---
Author Organization [employer] Address [address] [facility] [address] [address] Care Team Providers Care Gig Tender Name Role Phone IsraelDenisse SKYLA Primary Care Provider [phone] Encounter Details Date Type Department Care Team (Latest Contact Info) Description 12/05/2024 Travel Social History Tobacco Use Types Packs/Day [...] Description 01/08/2025 1:00 PM EST Procedure Visit [facility] [address] [place] [address] Denisse Wood NP [address] [place] [address] 04/08/2025 1:00 PM EST Office Visit [facility] [address] [place] [address] TarkaOlamide, OD [address] [place] [address] documented as of this encounter Visit Diagnoses Not on filedocumented in this encounter Additional Health Concerns Assessment Noted Time PHQ-9 Depression Total Score: 6 11/10/19 25 4:28 PM EDT documented as of this encounter Care Teams Gig Tender Relationship Specialty Start Date End Date Denisse Wood NP [address] [place] [address] PCP - General Family Medicine 10/24/23 documented as of this encounter
--- OUTSIDE RECORDS SUMMARY | 2024-12-05 22:48 | XMS_ITS | Encounter Summary ---
Author Organization [employer] Address [address] [facility] 7[place] [address] Care Team Providers Care Crew Mess Attendant Name Role Phone Denisse Wood NP Primary Care Provider [phone] Encounter Details Date Type Department Care Team ([facility] st Contact Info) Description 11/26/2024 Telephone [facility] [address] [place] [address] Ladonna Mclean RN Social History Tobacco Use Types Packs/Day Years [...] your housing situation today? I have breezy sing 11/09/[address] you li [...] PM EDT documented as of this encounter Miscellaneous Notes * Telephone Encounter - Hortensia Rehman RN - 12/03/2024 9:25 AM EDT Images from the original note were not included. Denisse Wood, SLOT MACHINE DEPARTMENT FLOORPERSON to Me (Selected Message) EG 11/29/24 2:32 PM Can we please ensure she has upcoming visit with ophthalmology? I may need to rebuild referral - thank you * Telephone Encounter - Hortensia Rehman RN - 11/29/2024 12:20 PM EDT Call returned to pt who currently denies headache and denies blurry vision. Reports that her symptoms have improved since last office visit. Reports that since last office visit she has only had one episode two days ago of her vision suddenly becoming a little blurry. Reports that she continues to have almost daily headaches. Reports that she suffers from seasonal allergies and takes Zytrec daily. Pt states she is unsure if symptoms are related to allergies. Pt states she has not seen an hospital manager. Pt states she was advised that she would see one in a week but states she is unsure if she has to do anything. Advised note will be sent to pcp for review. Reviewed [facility] availability for urge nt concerns. * Telephone Encounter - Alex Chairez - 11/27/2024 4:09 PM EDT Pt returning call * Telephone Encounter - Ladonna Mclean RN - 11/26/2024 3:23 PM EDT Tc to pt to do a status check per PCP Please call pt to see how vision symptosm are , has she seen an hospital manager? Thank you . No answer, lvm to return call and ask to speak to [facility] team nurses. * Telephone Encounter - Ladonna Mclean RN - 11/26/2024 3:23 PM EDT ----- Message from Denisse Wood sent at 11/26/2024 1:45 PM EDT ----- Please call pt to see how vision symptosm are , has she seen an hospital manager? Thank you documented in this encounter Plan of Treatment Upcoming Encounters Date Type Department Care Team (Late st Contact Info) Description 01/08/2025 1:00 PM EST Procedure Visit [facility] [address] [place] [address] Denisse Wood NP [address] [place] [address] 04/08/2025 1:00 PM EST Office Visit [facility] [address] [place] [address] Olamide Betancur, OD [address] [place] [address] documented as of this encounter Visit Diagnoses Not on filedocumented in this encounter Additional Health Concerns Assessment Noted Time PHQ-9 Depression Total Score: 6 11/10/19 25 4:28 PM EDT documented as of this encounter Care Teams Crew Mess Attendant Relationship Specialty Start Date End Date Denisse Wood NP [address] [place] [address] PCP - General Family Medicine 10/24/23 documented as of this encounter
--- OUTSIDE RECORDS SUMMARY | 2024-12-05 22:48 | XMS_ITS | Encounter Summary ---
Author Organization [employer] Address [address] [facility] 7[place], [place] [address] Care Team Providers Care Ski Tow Operator Name Role Phone Denisse Wood NP Primary Care Provider [phone] Reason for Visit * Reason Onset Date Comments ED expect 12/05/2024 Encounter Details Date Type Department Care Team ([facility] Contact Info) Description 12/05/2024 Telephone [facility] [address] [place] [address] Trev Dominguez MD [address] [place] [address] ED expect Social History Tobacco Use Types Packs/Day Years [...] encounter Miscellaneous Notes * Telephone Encounter - Dhara Singh RN - 12/05/2024 5:01 PM EDT TC placed to [facility] ED for expect by private care to rule out appendicitis. documented in this encounter Plan of Treatment Upcoming Encounters Date Type Department Care Team (Late st Contact Info) Description 01/08/2025 1:00 PM EST Procedure Visit [facility] [address] [place] [address] Denisse Wood NP [address] [place] [address] 04/08/2025 1:00 PM EST Office Visit [facility] [address] [place] [address] Olamide Betancur, OD [address] [place] [address] documented as of this encounter Visit Diagnoses Not on filedocumented in this encounter Additional Health Concerns Assessment Noted Time PHQ-9 Depression Total Score: 6 11/10/19 25 4:28 PM EDT documented as of this encounter Care Teams Ski Tow Operator Relationship Specialty Start Date End Date Denisse Wood NP [address] [place] [address] PCP - General Family Medicine 10/24/23 documented as of this encounter
--- OUTSIDE RECORDS SUMMARY | 2024-12-05 22:49 | XMS_ITS | Encounter Summary ---
Author Organization [facility] Address [address] [facility] [address] [place] [address] Phone Care Team Providers Care Posting Specialist Name Role Phone Vicky Mar CNP Primary Care Provide r Waldo Cotas DO Unavailable Encounter Details Date Type Department Care Team (Late st Contact Info) Description 04/29/2020 Transcribe Orders [facility] [address] [place] [address] Vicky Mar CNP [address] [facility] [place] [address] [email or web address] Social History Tobacco Use Types Packs/Day Years [...] filedocumented in this encounter Additional Health Concerns Infection Onset Date Last Indicated Resolved Time CoV-Risk 12/15/2020 12/15/2020 12/25/2020 1:22 AM EST CoV-Risk 02/08/2023 02/08/2023 02/19/2023 1:22 AM EST documented as of this encounter Care Teams Posting Specialist Relationship Specialty Start Date End Date Vicky Mar CNP [address] [place] [address] PCP - General 02/17/17 Waldo Coats DO [address] [place] [address] Insurance Assigned Provider 05/21/2306/23 documented as of this encounter Additional Source Comments The information contained in this document represents components of the legal health record. It is not the complete legal health record.[facility]
--- OUTSIDE RECORDS SUMMARY | 2024-12-05 22:49 | XMS_ITS | Encounter Summary ---
Author Organization [facility] Address [address] [facility] [address] [place] [address] Phone Care Team Providers Care Lye Boiler Name Role Phone Vicky Mar CNP Primary Care Provide r Waldo Coats DO Unavailable Encounter Details Date Type Department Care Team (Latest Contact Info) Description 05/15/2019 Transcribe Orders [facility] [address] [place] [address] Kurt Noriega MD [address] [facility] [address] [place] [address] Mild chronic ulcerative colitis without complication (Primary Dx) Social History Tobacco Use Types Packs/Day Years Used Date Smoking Tobacco: Never Smokeless Tobacco: Never Comments Unknown Sex and Gender Information Value Date Recorded Sex Assigned at Female 11/12/2019 10:12 PM EDT Legal Sex Female 10:24 PM EDT Gender Identity Female 11/12/2019 10:12 PM EDT Sexual Orientation Not on file documented as of this encounter Plan of Treatment Not on file documented as of this encounter Results * 25-OH vitamin D (05/24/2019 7:45 AM EDT) 25 OH VIT D (TOTAL) 39 30 - 60 ng/mL [facility] Blood 05/24/2019 7:45 AM EDT 05/24/2019 8:00 AM EDT us Kurt Noriega MD LAB BLOOD ORDERABLES Final R esult [facility] [address] [place] [address] documented in this encounter Visit Diagnoses Diagnosis Mild chronic ulcerative colitis without complication- Primary documented in this encounter Additional Health Concerns Infection Onset Date Last Indicated Resolved Time CoV-Risk 12/15/2020 12/15/2020 12/25/2020 1:22 AM EST CoV-Risk 02/08/2023 02/08/2023 02/19/2023 1:22 AM EST documented as of this encounter Care Teams Lye Boiler Relationship Specialty Start Date End Date Vicky Mar CNP [address] [place] [address] PCP - General 02/17/17 Waldo Coats DO [address] [place] [address] Insurance Assigned Provider 05/21/2306/23 documented as of this encounter Additional Source Comments The information contained in this document represents components of the legal health record. It is not the complete legal health record.[facility]
--- OUTSIDE RECORDS SUMMARY | 2024-12-05 22:49 | XMS_ITS | Encounter Summary ---
Author Organization [facility] Address [address] [facility] [address] [place] [phone] Phone Care Team Providers Care Supervisor [employer] Name Role Phone Vicky Mar CNP Primary Care Provide r Waldo Coats DO Unavailable Encounter Details Date Type Department Care Team (Late st Contact Info) Description 09/21/2017 Transcribe Orders [facility] [address] [place] [address] Vicky Mar CNP [address] [facility] [place] [address] [email or web address] Social History Tobacco Use Types Packs/Day Years Used Date Smoking Tobacco: Never Assessed Comments Unknown Sex and Gender Information Value [...] documented as of this encounter Care Teams Supervisor [employer] Relationship Specialty Start Date End Date Vicky Mar CNP [address] [place] [address] PCP - General 02/17/17 Waldo Coats DO [address] [place] [address] [email or web address] Insurance Assigned Provider 05/21/2306/23 documented as of this encounter Additional Source Comments The information contained in this document represents components of the legal health record. It is not the complete legal health record.[facility]
--- OUTSIDE RECORDS SUMMARY | 2024-12-05 22:49 | XMS_ITS | Encounter Summary ---
Author Organization [facility] Address [address] [facility] [address] [place] [phone] Phone Care Team Providers Care Manager Business Process Name Role Phone Vicky Mar CNP Primary Care Provide r Waldo Coats DO Unavailable Encounter Details Date Type Department Care Team (Latest Contact Info) Description 04/29/2020 Transcribe Orders [facility] [address] [place] [address] Kurt Noriega MD [address] [place] [address] Crohn's disease with complication, unspecified gastrointestinal tract [...] documented as of this encounter Results * (ABNORMAL) Calprotectin, stool (04/30/2020 9:06 AM EDT) Calprotectin, stool 146.0(H) <50.0 mcg/g [facility] Calprotectin Interp Positive (A) Negative [facility] Stool (Stool) 04/30/2020 9:0 6 AM EDT 04/30/2020 9:07 AM EDT Kurt Noriega MD BODY FLUIDS AND STOOLS ORDER ORIANA Final Result Performing Organization Address City/[facility]/ZIP Co de Phone Number [facility] [address] [place] [address] * C1 inhibitor, functional (04/29/2020 7:56 AM EDT) Pathologist [facility] C1 INHIB FUNCTIONAL >90 %of norm [facility]PERIOR Comment: (NOTE) REFERENCE VALUE >67 (Normal) 41-67 (Equivocal) <41 (Abnormal) Blood 04/29/2020 7:56 AM EDT 04/29/2020 8:25 AM EDT Kurt Noriega MD LAB BLOOD ORDERABLES Final R esult Performing Organization Address City/[facility] Co de Phone Number [facility] [address] [place] [address] * 25-OH vitamin D (04/29/2020 7:56 AM EDT) Pathologist [facility] 25 OH VIT D (TOTAL) 36 30 - 60 ng/mL [facility] Blood 04/29/2020 7:56 AM EDT 04/29/2020 8:25 AM EDT Kurt Noriega MD LAB BLOOD ORDERABLES Final R esult Performing Organization Address City/[facility]/ZIP Co de Phone Number [facility] [address] [place] [address] * (ABNORMAL) Sedimentation rate (ESR) (04/29/2020 7:56 AM EDT) Pathologist [facility] ESR 24(H) 0 - 20 mm/h [facility] Blood 04/29/2020 7:56 AM EDT 04/29/2020 8:25 AM EDT Kurt Noriega MD LAB BLOOD ORDERABLES Final R esult Performing Organization Address City/[facility]/ZIP Co de Phone Number [address] [address] * C-Reactive Protein (04/29/2020 7:56 AM EDT) C REACTIVE PROTEIN 3.3 0.0 - 4.0 mg/L [facility] Blood 04/29/2020 7:56 AM EDT 04/29/2020 8:25 AM EDT Kurt Noriega MD LAB BLOOD ORDERABLES Final R esult Performing Organization Address City/[facility] Co de Phone Number [address] [address] * CBC and differential (04/29/2020 7:56 AM EDT) WBC 8.29 4.00 - 11.00 K/uL [facility] RBC 4.44 3.72 - 5.30 M/uL [facility] HGB 14.0 11.0 - 15.2 g/dL [facility] HCT 42.3 31.6 - 44.1 % [facility] PLT 312 140 - 430 K/uL [facility] MCV 95.3 78.0 - 97.0 [facility] MCH 31.5 25.0 - 33.0 pg [facility] MCHC 33.1 32.0 - 36.0 g/dL [facility] RDW 12.5 11.0 - 16.0 % [facility] MPV 11.0 8.4 - 12.8 [facility] NRBC 0.00 0 /100 WBCs [facility] ABSOLUTE NRBC 0.00 0 K/uL [facility] DIFF METHOD Auto [facility] NEUTS 64.8 43.0 - 75.0 % [facility] LYMPHS 23.8 18.2 - 47.4 % [facility] MONOS 9.0 4.00 - 11.00 % [facility] EOS 1.8 0.0 - 8.0 % [facility] BASOS 0.4 0.0 - 2.0 % [facility] Granulocytes, immature (%) 0.2 0.0 - 0.9 % [facility] ABSOLUTE NEUTS 5.37 1.80 - 7.70 K/uL [facility] ABSOLUTE LYMPHS 1.97 1.00 - 3.10 K/uL [facility] ABSOLUTE MONOS 0.75 0.20 - 0.80 K/uL [facility] ABSOLUTE EOS 0.15 0.00 - 0.80 K/uL [facility] ABSOLUTE BASOS 0.03 0.00 - 0.09 K/uL [facility] Granulocytes, immature 0.02 0.00 - 0.05 K/uL [facility] Blood 04/29/2020 7:56 AM EDT 04/29/2020 8:25 AM EDT us Kurt Noriega MD LAB BLOOD ORDERABLES Final R esult Performing Organization Address City/[facility]/ZIP Co de Phone Number [address] [address] * Alanine aminotransferase (ALT) (04/29/2020 7:56 AM EDT) ALT 9 0 - 40 U/L [facility] Blood 04/29/2020 7:56 AM EDT 04/29/2020 8:25 AM EDT Kurt Noriega MD LAB BLOOD ORDERABLES Final R esult Performing Organization Address City/[facility]/ZIP Co de Phone Number [address] [address] * Albumin (04/29/2020 7:56 AM EDT) ALBUMIN 4.6 3.9 - 4.8 g/dL [facility] Blood 04/29/2020 7:56 AM EDT 04/29/2020 8:25 AM EDT us Kurt Noriega MD LAB BLOOD ORDERABLES Final R esult [facility] [address] [place] [address] documented in this encounter Visit Diagnoses Diagnosis Crohn's disease with complication, unspecified gastrointestinal tract location- Primary documented in this encounter Additional Health Concerns Infection Onset Date Last Indicated Resolved Time CoV-Risk 12/15/2020 12/15/2020 12/25/2020 1:22 AM EST CoV-Risk 02/08/2023 02/08/2023 02/19/2023 1:22 AM EST documented as of this encounter Care Teams Manager Business Process Relationship Specialty Start Date End Date Vicky Mar CNP [address] [place] [address] PCP - General 02/17/17 Waldo Coats DO [address] [place] [address] Insurance Assigned Provider 05/21/2306/23 documented as of this encounter Additional Source Comments The information contained in this document represents components of the legal health record. It is not the complete legal health record.[facility]
[2024-12-06] MEDS: iohexoL 350 MG/ML 100 ML INFUS..BTL 85 ML IV (00:38)
[2024-12-06 01:15] VITALS: BP 109/68; PULSE 78; RESP 16; TEMP 36.6; O2SAT 96
[2024-12-06 02:56] VITALS: BP 109/68; PULSE 78; RESP 16; TEMP 36.6; O2SAT 96
== END 2024-12-06 02:57 | disposition home or self-care (01) ==
PROVIDERS: Physician Assistant Medical; Emergency Provider Emergency Medicine; PCP Nurse Practitioner Family
DX: N83.201 Unspecified ovarian cyst, right side (principal); K59.00 Constipation, unspecified; R10.30 Lower abdominal pain, unspecified; R11.0 Nausea; Z79.899 Other long term (current) drug therapy
CPT/HCPCS: 36415; 74018; 74177; 76856; 80053; 83690; 83735; 84702; 85025; 86140; 93975; 99284; Q9967

== ENCOUNTER → 2024-12-05 17:59 | Outpatient (BNV) | payer MEDICAID, SELFPAY | PROVIDERS: PCP Nurse Practitioner Family; Visit Provider Radiology Diagnostic Radiology | DX: K59.00 Constipation, unspecified (principal) | CPT/HCPCS: 74018 ==

== ENCOUNTER → 2024-12-06 00:10 | Outpatient (BNV) | payer MEDICAID, SELFPAY | PROVIDERS: Emergency Provider Emergency Medicine; PCP Nurse Practitioner Family; Visit Provider Radiology Diagnostic Radiology | DX: N83.201 Unspecified ovarian cyst, right side (principal) | CPT/HCPCS: 74177 ==

== ENCOUNTER 2024-12-27 15:28 | Outpatient (REF) | payer OTHER, MEDICAID, SELFPAY ==
--- NOTE | ~2024-12-27 | XR_ITS ---
EXAMINATIONS: 1. XR ANKLE 3 OR MORE VIEWS RIGHT 2. XR FOOT 3 OR MORE VIEWS RIGHT CLINICAL INFORMATION: lateral ankle foot pain, swelling and bruising s/p fall COMPARISON: None available. TECHNIQUE: AP, lateral, and mortise views of the left ankle. FINDINGS: Ankle: Normal alignment. No acute fracture. Joint spaces are preserved. Ankle mortise is maintained. Soft tissue swelling overlying the lateral malleolus. Foot: Normal alignment. No acute fracture. Joint spaces are preserved. No radiopaque foreign body. XR/XR ankle RT min 3V IMPRESSION: No acute fracture or dislocation of the ankle or foot. Electronically signed by: Carine Jasmine MD 12/27/2024 04:41 PM EST
--- NOTE | ~2024-12-27 | XR_ITS ---
EXAMINATIONS: 1. XR ANKLE 3 OR MORE VIEWS RIGHT 2. XR FOOT 3 OR MORE VIEWS RIGHT CLINICAL INFORMATION: lateral ankle foot pain, swelling and bruising s/p fall COMPARISON: None available. TECHNIQUE: AP, lateral, and mortise views of the left ankle. FINDINGS: Ankle: Normal alignment. No acute fracture. Joint spaces are preserved. Ankle mortise is maintained. Soft tissue swelling overlying the lateral malleolus. Foot: Normal alignment. No acute fracture. Joint spaces are preserved. No radiopaque foreign body. XR/XR foot RT min 3V IMPRESSION: No acute fracture or dislocation of the ankle or foot. Electronically signed by: Carine Jasmine MD 12/27/2024 04:41 PM EST
--- OUTSIDE RECORDS SUMMARY | 2024-12-27 15:00 | XMS_ITS | Encounter Summary ---
Author Organization [employer] Address [address] [facility] [address] [address] Care Team Providers Care Chief Arson Division Name Role Phone Denisse Wood NP Primary Care Provider [phone] Encounter Details Date Type Department Care Team ([facility] st Contact Info) Description 12/27/2024 3:00 PM EST Office Visit [facility] [address] [place] [address] Violet Maloney DO [address] [place] [address] Right foot pain (Primary Dx); Sprain of anterior talofibular ligament of right ankle, initial encounter Social History Tobacco Use Types Packs/Day Years [...] Sign Reading Time Taken Comments Blood Pressure 130/84 12/27/2024 2:57 PM EST Pulse 80 12/27/2024 2:57 PM EST Temperature 36.9 C (98.4 F) 12/27/2024 2:57 PM EST Respiratory Rate 21 12/27/2024 2:57 PM EST Oxygen Saturation 99% 12/27/2024 2:57 PM EST Inhaled Oxygen Concentration - - Weight 57.2 kg (126 lb) 12/27/2024 2:57 PM EST Height 165.1 cm (5' 5 ) 12/27/2024 2:57 PM EST Body Mass Index 20.97 12/27/2024 2:57 PM EST documented in this encounter Progress Notes * Violet Maloney, DO - 12/27/2024 3:00 PM EST SUBJECTIVE: Adwoa Jara is a 24 y.o. year old female who presents for sick visit. HPI She comes to [place] clinic today after injury at work yesterday. She was told to go see her PCP or get evaluated at . She works at the [employer] in [place]. She says that she was carrying a box down stairs and she slipped on the last stair and her R foot twisted inward and she landed on her ankle on the concrete floor. She says that she has a little kneepain but mostly her ankle pain. She says that she played soccer in high school and has sprained in her ankles previously in the past. She can't take NSAIDs for a long period of time because of her Crohn's. She says that one of her co-workers happened to have an ankle brace at work which has helped with her discomfort a lot. She has been using tylenol and icing her ankle which has helped a lot. She can't stand on her foot for more than a couple of minutes before her ankle starts throbbing. She managed to drive herself here today but the motion aggravated her pain. History provided by: Patient measurement operator used: No Ankle Pain The incident occurred 12 to 24 hours ago. The incident occurred at work. The injury mechanism was atwisting injury and an inversion injury. The pain is present in the right ankle. The pain is severe. The pain has been Constant since onset. Pertinent negatives include no inability to bear weight, loss of motion, loss of sensation, muscle weakness, numbness or tingling. The symptoms are aggravatedby movement. She has tried ice and acetaminophen for the symptoms. The treatment provided mild relief. Review of Systems Constitutional: Negative for chills and fever. Respiratory: Negative for shortness of breath. Cardiovascular: Negative for chest pain and leg swelling. Gastrointestinal: Negative for abdominal pain, diarrhea and vomiting. Musculoskeletal: Positive for arthralgias, gait problem and joint swelling. Neurological: Negative for tingling, numbness and headaches. Patient Active Problem List Diagnosis HSV infection Crohn's disease of both small and large intestine without complication ([facility]) Healthcare maintenance Seasonal allergic rhinitis due to pollen Cervicitis Crohn's disease ([facility]) ([facility]) IBS (irritable bowel syndrome) Irregular periods Vulvar burning Herpes simplex infection of genitourinary system Chronic maxillary sinusitis PND (post-nasal drip) Blurry vision No Known Allergies OBJECTIVE Vitals: 12/27/24 1457 BP: 130/84 BP Location: Left arm Patient Position: Sitting BP Cuff Size: Adult Pulse: 80 Resp: 21 Temp: 98.4 ??F (36.9 ??C) TempSrc: Oral SpO2: 99% Weight: 126 lb (57.2 kg) Height: 5' 5 (1.651 m) Physical Exam Constitutional: General: She is not in acute distress. Appearance: Normal appearance. Cardiovascular: Rate and Rhythm: Normal rate and regular rhythm. Heart sounds: Normal heart sounds. No murmur heard. Pulmonary: Effort: Pulmonary effort is normal. Breath sounds: Normal breath sounds. No wheezing or rhonchi. Musculoskeletal: Right ankle: Swelling and ecchymosis present. No deformity. Tenderness present over the lateral malleolus. Decreased range of motion. Normal pulse. Comments: Significant ecchymosis R lateral malleolus extending down to bottom of foot Neurological: General: No focal deficit present. Mental Status: She is alert and oriented to person, place, and time. Cranial Nerves: No cranial nerve deficit. Motor: No weakness. Gait: Gait abnormal. Comments: Ambulates with limp Psychiatric: Mood and Affect: Mood normal. ASSESSMENT/PLAN Diagnoses and all orders for this visit: Right foot pain Sprain of anterior talofibular ligament of right ankle, initial encounter Probable ATF sprain -provided reassurance -referred for foot and ankle xrays r/o fracture -trial naprosyn BID x 3 days, alternate with tylenol prn -trial diclofenac gel -cont frequent ice therapy -GUERA wrap placement and crutches fitting with WI RN -cont ankle brace PRN -d/w pt importance of wearing supportive shoes -consider PT once sprain heals -advised no work x one week, work note provided -advised rtc or go to ED if no improvement or symptoms worsen, she agrees with plans - XR Foot 3+ Views Right; Future - XR Ankle 3+ Views Right; Future - naproxen (Naprosyn) 500 MG tablet; Take 1 tablet (500 mg) by mouth if needed in the morning and at bedtime for mild pain or moderate pain for up to 3 days. - acetaminophen (Tylenol 8 Hour) 650 MG ER tablet; Take 1 tablet (650 mg) by mouth every 8 (eight) hours if needed for mild pain. Do not crush, chew, or split. - Diclofenac Sodium 1 % gel; Apply 2 g topically if needed in the morning, at noon, in the evening,and at bedtime (pain). F/U with PCP as scheduled or sooner prn Current Outpatient Medications: betamethasone, augmented, (Diprolene) 0.05 % ointment, Apply topically 2 times daily., Disp: 15 g, Rfl: 1 Diclofenac Sodium 1 % gel, Apply thin layer by topical route (quantity as directed on package insert) to affected area of pain 3 times daily as needed., Disp: 50 g, Rfl: 3 fluticasone (Flonase) 50 MCG/ACT nasal spray, USE 2 SPRAYS IN EACH NOSTRIL ONCE EVERY DAY. SHAKE GENTLY. CLEAN TIP AND REPLACE CAP AFTER USE., Disp: 48 mL, Rfl: 0 Humira, 2 Pen, 40 MG/0.4ML Pen-injector Kit pen-injector, Inject 40 mg under the skin every 14 (fourteen) days., Disp: , Rfl: hydrOXYzine HCl (Atarax) 50 MG tablet, Take 50 mg by mouth 3 times daily., Disp: , Rfl: lidocaine (Lidoderm) 5 % patch, Apply 1 patch topically Once per day. Remove & discard patch within 12 hours or as directed by MD., Disp: 30 patch, Rfl: 0 ondansetron (Zofran) 4 MG tablet, Take 1 tablet by mouth every 8 hours as needed for nausea/vomiting, Disp: 30 tablet, Rfl: 1 triamcinolone (Kenalog) 0.1 % ointment, Apply topically 2 times daily., Disp: 15 g, Rfl: 1 valACYclovir (Valtrex) 500 MG tablet, Take 1 tablet (500 mg) by mouth Once per day., Disp: 90 tablet, Rfl: 3 documented in this encounter Plan of Treatment Upcoming Encounters Date Type Department Care Team (Late st Contact Info) Description 01/08/2025 1:00 PM EST Procedure Visit [facility] [address] [place] [address] Denisse Wood, TUMBLER MACHINE OPERATOR HELPER [address] [place] [address] 04/08/2025 1:00 PM EST Office Visit [facility] [address] [place] [address] Olamide Betancur, OD [address] [place] [address] documented as of this encounter Procedures Procedure Name Priority Date/Time Associated Diagnosis Comments XR ANKLE 3+ VIEWS RIGHT Routine 12/27/2024 4:10 PM EST Right foot pain Sprain of anterior talofibular ligament of right ankle, initial encounter XR FOOT 3+ VIEWS RIGHT Routine 12/27/2024 3:50 PM EST Right foot pain Sprain of anterior talofibular ligament of right ankle, initial encounter documented in this encounter Results * XR Ankle 3+ Views Right (12/27/2024 4:10 PM EST) Anatomical Region Laterality Modality Lower Extremities, Ankle Right Radiogr aphic Imaging 12/27/2024 4:10 PM EST Narrative 12/27/2024 4:43 PM EST [address] [address] XRay Report Signed Patient: Adwoa Jara MR#: [id number] : 2000 Acct:[id number] Age/Sex: 24 / F ADM Date: 12/27/24 Loc: HO.[facility]X Attending Dr: Violet Maloney DO Ordering Physician: Violet Maloney DO Date of Service: 12/27/24 Procedure(s): XR ankle RT min 3V Accession Number(s): [id number] cc: Violet Maloney DO Reason for Exam: lateral ankle foot pain, swelling and bruising s/p fall EXAMINATIONS: 1. XR ANKLE 3 OR MORE VIEWS RIGHT 2. XR FOOT 3 OR MORE VIEWS RIGHT CLINICAL INFORMATION: lateral ankle foot pain, swelling and bruising s/p fall COMPARISON: None available. TECHNIQUE: AP, lateral, and mortise views of the left ankle. FINDINGS: Ankle: Normal alignment. No acute fracture. Joint spaces are preserved. Ankle mortise is maintained. Soft tissue swelling overlying the lateral malleolus. Foot: Normal alignment. No acute fracture. Joint spaces are preserved. No radiopaque foreign body. XR/XR ankle RT min 3V IMPRESSION: No acute fracture or dislocation of the ankle or foot. Electronically signed by: Carine Jasmine MD 12/27/2024 04:41 PM EST RP Dictated By: Carine Jasmine MD Signed By: <Electronically signed by Carine Jasmine MD in OV> 12/27/24 1641 DD/ 09 TD/TT: 12/27/241612 Director Of Land: Procedure Note Donotuseinterpreter, Image - 12/27/[address] [address] XRay Report Signed Patient: Adwoa JaraMR#: [id number] : 2000Acct:[id number] Age/Sex: Date: 12/27/24 Loc: HO.HHCX Attending Dr: Violet Maloney DO Ordering Physician: Violet Maloney DO Date of Service: 12/27/24 Procedure(s): XR ankle RT min 3V Accession Number(s): [id number] cc: Violet Maloney DO Reason for Exam: lateral ankle foot pain, swelling and bruising s/p fall EXAMINATIONS: 1. XR ANKLE 3 OR MORE VIEWS RIGHT 2. XR FOOT 3 OR MORE VIEWS RIGHT CLINICAL INFORMATION: lateral ankle foot pain, swelling and bruising s/p fall COMPARISON: None available. TECHNIQUE: AP, lateral, and mortise views of the left ankle. FINDINGS: Ankle: Normal alignment. No acute fracture. Joint spaces are preserved. Ankle mortise is maintained. Soft tissue swelling overlying the lateral malleolus. Foot: Normal alignment. No acute fracture. Joint spaces are preserved. No radiopaque foreign body. XR/XR ankle RT min 3V IMPRESSION: No acute fracture or dislocation of the ankle or foot. Electronically signed by: Carine Jasmine MD 12/27/2024 04:41 PM EST RP Dictated By: Carine Jasmine MD Signed By: <Electronically signed by Carine Jasmine MD in OV> 12/27/24 1641 DD/ 1610 TD/TT: 11/13/25 1613 Director Of Land: Violet Maloney DO IMG XR PROCEDURES Final Resu lt * XR Foot 3+ Views Right (12/27/2024 3:50 PM EST) Anatomical Region Laterality Modality Lower Extremities, Foot Right Radiogra phic Imaging 12/27/2024 3:5 0 PM EST Narrative 12/27/2024 4:43 PM EST [address] [address] XRay Report Signed Patient: Adwoa Jara MR#: [id number] : 2000 Acct:[id number] Age/Sex: 24 / F ADM Date: 12/27/24 Loc: .[facility]HCX Attending Dr: Violet Maloney DO Ordering Physician: Violet Maloney DO Date of Service: 12/27/24 Procedure(s): XR foot RT min 3V Accession Number(s): [id number] cc: Violet Maloney DO Reason for Exam: lateral ankle foot pain, swelling and bruising s/p fall at work EXAMINATIONS: 1. XR ANKLE 3 OR MORE VIEWS RIGHT 2. XR FOOT 3 OR MORE VIEWS RIGHT CLINICAL INFORMATION: lateral ankle foot pain, swelling and bruising s/p fall COMPARISON: None available. TECHNIQUE: AP, lateral, and mortise views of the left ankle. FINDINGS: Ankle: Normal alignment. No acute fracture. Joint spaces are preserved. Ankle mortise is maintained. Soft tissue swelling overlying the lateral malleolus. Foot: Normal alignment. No acute fracture. Joint spaces are preserved. No radiopaque foreign body. XR/XR foot RT min 3V IMPRESSION: No acute fracture or dislocation of the ankle or foot. Electronically signed by: Carine Jasmine MD 12/27/2024 04:41 PM EST Dictated By: Carine Jasmine MD Signed By: <Electronically signed by Carine Jasmine MD in OV> 12/27/24 1641 DD/ 1550 TD/TT: 12/27/24 1613 Director Of Land: Procedure Note Donotuseinterpreter, Image - 12/27/2024 [facility] [address] [place] [address] XRay Report Signed Patient: Adwoa JaraMR#: [id number] : 2000Acct:[id number] Age/Sex: 24 / FADM Date: 12/27/24 [facility]: Violet Maloney DO Ordering Physician: Violet Maloney DO Date of Service: 12/27/24 Procedure(s): XR foot RT min 3V Accession Number(s): [id number] cc: Violet Maloney DO Reason for Exam: lateral ankle foot pain, swelling and bruising s/p fallat work EXAMINATIONS: 1. XR ANKLE 3 OR MORE VIEWS RIGHT 2. XR FOOT 3 OR MORE VIEWS RIGHT CLINICAL INFORMATION: lateral ankle foot pain, swelling and bruising s/p fall COMPARISON: None available. TECHNIQUE: AP, lateral, and mortise views of the left ankle. FINDINGS: Ankle: Normal alignment. No acute fracture. Joint spaces are preserved. Ankle mortise is maintained. Soft tissue swelling overlying the lateral malleolus. Foot: Normal alignment. No acute fracture. Joint spaces are preserved. No radiopaque foreign body. XR/XR foot RT min 3V IMPRESSION: No acute fracture or dislocation of the ankle or foot. Electronically signed by: Carine Jasmine MD 12/27/2024 04:41 PM [facility] Dictated By: Carine Jasmine MD Signed By: <Electronically signed by Carine Jasmine MD in OV> 12/27/24 1641 DD/ 1550 TD/TT: 12/27/24 1613 Director Of Land: us Violet Maloney DO IMG XR PROCEDURES Final Resu lt documented in this encounter Visit Diagnoses Diagnosis Right foot pain- Primary Pain in soft tissues of limb Sprain of anterior talofibular ligament of right ankle, initial encounter documented in this encounter Additional Health Concerns Assessment Noted Time PHQ-9 Depression Total Score: 6 11/10/19 25 4:28 PM EDT documented as of this encounter Care Teams Chief Arson Division Relationship Specialty Start Date End Date Denisse Wood NP [address] [place] [address] PCP - General Family Medicine 10/24/23 documented as of this encounter
--- OUTSIDE RECORDS SUMMARY | 2024-12-27 18:31 | XMS_ITS | Clinical Summary ---
Author Organization [facility] [address] [facility] Address [address] [place] [address] Phone Care Team Providers Care Shower Maid Name Role Phone Denisse Wood JUAN Primary Care Provider [phone] Allergies No known active allergies Medications valACYclovir (VALTREX) 500 mg tablet Take 1 tablet (500 mg total) by mouth 1 (one) time each day. 025 Active ondansetron (ZOFRAN) 4 mg tablet Take 1 tablet (4 mg total) by mouth every 8 (eight) hours if needed. for nausea and vomiting 025 Active fluticasone propionate (FLONASE) 50 mcg/actuation nasal spray PLEASE SEE ATTACHED FOR DETAILED DIRECTIONS 025 Active betamethasone, augmented, (DIPROLENE) 0.05 % ointment Apply 1 Application topically 2 (two) times a day. APPLY TO AFFECTED AREA 025 Active adalimumab-bwwd (Hadlima,CF, PushTouch) 40 mg/0.4 mL auto-injectorIndica tions:Crohn's disease with complication, unspecified gastrointestinal tract location (CMS/HCC V24, CMS/HCC V28) INJECT 0.4 ML (40 MG TOTAL) UNDER THE SKIN EVERY 14 (FOURTEEN) DAYS. 2 each 5 025 Active Humira,CF, Pen 40 mg/0.4 mL penIndications:Croh n's disease with complication, unspecified gastrointestinal tract location (CMS/HCC V24, CMS/HCC V28) INJECT 1 PEN UNDER THE SKIN EVERY 14 DAYS 2 each 2 025 Active adalimumab (Humira,CF, Pen) 40 mg/0.4 mL penIndications:Croh n's disease with complication, unspecified gastrointestinal tract location ([facility] V24, [facility] V28) Inject 0.4 mL (40 mg total) under the skin every 14 (fourteen) days. 1 each 2 08/20/ 025 2024 Discontinued Surgical History Surgery Date Site/Laterality Comments COLONOSCOPY [...] of both smal l and large intestine ([facility] V24, [facility] V28) 04/19/2018 mild ileitis, lef t sided [...] PM EST Office Visit Gastroenterology - [address] [place] [id number] Farrah Goldberg PA [address] [facility] [address] [place] [address] Health Maintenance Due Date Last Done Comments Gonorrhea/Chlamydia Screening 2000 HPV Vaccines (1 - 3-dose series) 2015 Cervical Cancer Screening: Pap Smear 2021 HIV Screening 01/17/2022 Social Influencers of Health Screening 01/17/2022 DTaP,Tdap,and Td Vaccines (4 - Td or Tdap) 07/24/2022 07/24/2012, 05/12/2001, 01/12/2001 Depression Screening 02/15/2024 COVID-19 Vaccine ( season) 2024 02/21/2021, 07/28/2020, 06/30/2020 Influenza Vaccine [...] topic Insurance MEDICAID - [place] Care Teams Shower Maid Relationship Specialty Start Date End Date Denisse Wood FNP [address] [place] [id number] PCP - General Nurse Practitioner 02/27/24
--- OUTSIDE RECORDS SUMMARY | 2024-12-27 18:31 | XMS_ITS | Clinical Summary ---
Author Organization [facility] Address [address] [facility] [place] [phone] Phone Care Team Providers Care Toxicology Teacher Name Role Phone Vicky Mar CNP Primary Care Provide r Allergies No known active allergies Medications LAVERNE RAI, PEN 40 mg/0.4 mL pen kit 2 Active ondansetron (ZOFRAN-ODT) 4 MG disintegrating tablet (To-Go) Take 1-2 tablet(s) by mouth every 8 hours as needed for nausea/vomi ting 6 tablet 3 Active VIENVA 0.1-20 mg-mcg per tablet take 1 tablet by mouth every day 84 tablet 1 4 Active valACYclovir (VALTREX) 500 MG tabletIndications:H erpes simplex infection of genitourinary system TAKE 1 TABLET (500 MG TOTAL) BY MOUTH DAILY. 90 tablet 5 Active Active Problems Problem Noted Date Diagnosed Date Cervicitis 05/10/2023 Assessment & Plan (05/10/2023 1:51 PM EDT): Swabbed for STD. If this is negative I suggest she see media operator Vulvar burning 05/10/2023 Assessment & Plan (05/10/2023 1:52 PM EDT): Erythema with edema of inner labia and vaginal opening. Swabbed and in interim, use lubricant for comfort. Avoid intercourse until more known. If negative results from testing, recommend she see media operator Herpes simplex infection of genitourinary system 02/14/2021 Overview (04/20/2021): Type 1 Assessment & Plan (05/10/2023 1:51 PM EDT): No lesions noted and she has been taking preventative dosing. No outbreak evident Assessment & Plan (02/10/2022 4:44 PM EST): Remains on daily suppressive therapy after initial occurrence, pt preference IBS (irritable bowel syndrome) 09/29/2018 Assessment & Plan (02/10/2022 4:44 PM EST): Stable with avoiding food triggers Assessment & Plan (09/29/2018 10:06 AM EDT): Continue specialty diet for sx control and f/u with gastro specialist Crohn's disease of both smal l and large intestine without complication 05/10/2018 Overview (02/10/2022): Dx'd 2018 2021- under the care of Dr Gale Started Humira 05/22/2021 with positive results Assessment & Plan (02/10/2022 4:46 PM EST): under the care of Dr Gale Started Humira 05/22/2021 with positive results Resolved Problems Problem Noted Date Diagnosed Date Resolved Date Rash of genital area 02/16/2021 022 Assessment & Plan (02/16/2021 5:28 PM EST): Labial and vulvar rash appears consistent with genital herpes, one lesion dehooded and swabbed for PCR testing. Nearly a week has passed since onset and so antiviral med not indicated. Discussed genital herpes, sexual transmission, possible recurrences and risk to others. Recommend testing for other sexually transmitted infections which pt declines today but I encouraged her to return to discuss this. Idiopathic scoliosis of thoracic region 09/19/2017 02/10/2022 Irregular menses 09/19/2017 02/10/2022 Assessment & Plan (02/10/2022 4:46 PM EST): Regular with use of OCP Loose stools 09/19/2017 09/27/2018 Unintentional weight loss 09/19/2017 Immunizations Immunization Administration Dates Next Due COVID-19 (Pre-12/06) Moderna Vaccine, mRNA, PF 02/21/2021,07/28/2020,06/30/2020 DTaP 05/12/2001,01/12/2001 Hepatitis B 06/06/2014,07/24/2012 Hepatitis B Adult 10/11/2014 Hib,PRP-T 05/12/2001,01/12/2001 IPV 09/22/2015, 5,05/12/2001,01/12 MMR 06/06/2014,09/18/2001 Meningococcal MCV4P 09/19/2017,10/11/2014 Tdap 07/24/2012 Varicella 07/05/2014,08/11/2012,07/24/2012 Family History Medical History Relation Comments Seizures Brother Other Father Neuropathic pain Migraines Mother Seizures Paternal Aunt No Known Problems Sister Relation Status Comments Brother Father Mother Paternal Aunt Sister Social History Tobacco Use Types Packs/Day Years Used Date Smoking Tobacco: Never Smokeless Tobacco: Never Tobacco Cessation:Counseling Given: Not Answered Alcohol Use Standard Drinks/Week Comments Not Currently 0 (1 standard drink = 0.6 oz pur e alcohol) Child or Family Care Answer Date Record ed Do you have problems with on e of the following making it difficult for you to work, study, or receive health care? No 02/09/2022 Education Answer Date Recorded Are you interested in more education? Not on luis a e 02/12/2024 Are you concerned about learning? Not on file 02/12/2024 No 02/12/2024 No 02/12/2024 Food Answer Date Recorded Within the past 6 months we worried whether our food would run out before we got money to buy more. Never True 02/09/2022 Within the past 6 months the food we bought just didn't last and we didn't have enough money to get more. Never True Residential Stability Answer Date Recor ded What is your housing situation today? I have breezy sing 02/09/2022 How many times have you moved in the past 12 tue ths? One time 02/09/2022 Paying for Meds Answer Date Recorded Do you have trouble paying for medicines? No 02/09/2022 Paying Utility Bills Answer Date Record ed Do you have trouble paying your heating or elect ricity bill? No 02/09/2022 Transportation Answer Date Recorded Has the lack of transportati on kept you from medical appointments or from getting medications? No 02/09/2022 Unemployment Answer Date Recorded Are you currently unemployed or working on a part-time or temporary basis, and looking for work? No 02/09/2022 Digital Access Answer Date Recorded No 07/12/2022 No 07/12/2022 Reliable internet access at home? Not on file 07/12/2022 Device with a working camera? Not on file Intimate Partner Violence Answer Date R ecorded Are you denied basic needs s uch as food, clothing, or medical care? No 02/08/2023 In the past 12 months have y ou been in a relationship with a person who hurts, threatens, or tries to control you? No 02/08/2023 Are you denied basic needs s uch as food, clothing, or medical care? No 02/08/2023 In the past 12 months have y ou been in a relationship with a person who hurts, threatens, or tries to control you? No 02/08/2023 Comments Unknown Sex and Gender Information Value Date Recorded Sex Assigned at Female 11/12/2019 10:12 PM EDT Legal Sex Female 10:24 PM EDT Gender Identity Female 11/12/2019 10:12 PM EDT Sexual Orientation Not on file Last Filed Vital Signs Vital Sign Reading Time Taken Comments Blood Pressure 116/58 05/10/2023 11:08 AM EDT Pulse 74 05/10/2023 11:08 AM EDT Temperature 36.8 C (98.2 F) 05/10/2023 11:08 AM EDT Respiratory Rate 14 02/09/2023 1:38 AM EST Oxygen Saturation 99% 05/10/2023 11:08 AM EDT Inhaled Oxygen Concentration - - Weight 60.8 kg (134 lb) 05/10/2023 11:08 AM EDT Height 162.6 cm (5' 4.02 ) 05/10/2023 11:08 AM E DT Body Mass Index 22.99 05/10/2023 11:08 AM EDT Plan of Treatment Health Maintenance Due Date Last Done Comments SMOKING Hx and SMOKELESS TOBACCO SCREENING 2013 HPV VACCINES (1 - 3-dose series) 2015 PNEUMOCOCCAL VACCINES (0-49 years) (1 of 2 - PCV) 2019 Adult Td,Tdap Booster 07/24/2022 07/24/2012 DEPRESSION SCREENING 02/09/2023 02/09/2022 INFLUENZA VACCINE (#1) 2024 COVID-19 VACCINE ( season) 2024 02/21/2021, 07/28/2020, 06/30/2020 PAP SMEAR 02/10/2025 02/10/2022 HIB VACCINES Aged Out 05/12/2001, 01/12/2001 No lo nger eligible based on patient's age to complete this topic IPV VACCINES Completed 09/22/2015, 06/15, 05/12/2001, Additional history exists MENINGOCOCCAL VACCINES (ACWY) Completed 09/19/2017, 10/11/2014 HEPATITIS C SCREENING Completed 02/19/2021 HIV ONE-TIME SCREENING (18-65 YEARS) Completed 02/19/2021 HEPATITIS A VACCINES Aged Out No long er eligible based on patient's age to complete this topic MENINGOCOCCAL VACCINES (B) Aged Out N o longer eligible based on patient's age to complete this topic Medical Devices Not on file Procedures Procedure Name Priority Date/Time Associated Diagnosis Comments PAP TEST Routine 02/10/2022 12:00 AM EST HEPATITIS C ANTIBODY, QUALITATIVE Routine 02/19/2021 8:12 AM EST Need for hepatitis C screening test Screening for STDs (sexually transmitted diseases) from Last 3 Months or Most Recently Relevant to Health Maintenance Results * Pap Smear (02/10/2022 12:00 AM EST) 02/10/2022 02/11/2022 10: 06 AM EST Narrative SEE NARRATIVE - 02/17/2022 11:04 AM EST [address] [id number] Database Marketing Manager: Brionna Ribera MD EMERGENCY MEDICINE NURSE PRACTITIONER Cytology Report FINAL DIAGNOSIS A. PAP SMEAR (SUREPATH) CE: SPECIMEN ADEQUACY: Satisfactory for evaluation; transformation zone present. INTERPRETATION: NEGATIVE FOR INTRAEPITHELIAL LESION OR MALIGNANCY. Electronically Signed Out By: MARTIN Chong(ASCP) The Pap test is a screening test primarily for squamous cancers and precursors and has associated false-negative and false-positive results. New technologies such as liquid-based preparations may decrease but will not eliminate all false-negative results. Regular sampling and follow-up of unexplained clinical signs and symptoms are recommended to minimize false negative results. CLINICAL HISTORY Date of Last Menstrual Period: 01-08-2022 Other Clinical Conditions: Screening Pap SPECIMEN SOURCE A: PAP SMEAR (SUREPATH) CE Patient Name: ADWOA JARA. : 2000 (Age: 21) Sex: F Institution: [facility] Location: [facility] Date of Collection: 02/10/2022 Date of Reported: 02/17/2022 11:04 Results to: Vicky Mar JOINERY FACTORY WORKER us Vicky Mar CNP CYTOLOGY ORDERABLES F inal Result SEE NARRATIVE * Hepatitis C antibody, qualitative (02/19/2021 8:12 AM EST) HCV NON-REACTIV E NON-REACTI VE [facility] Blood 02/19/2021 8:12 AM EST 02/19/2021 8:30 AM EST us Vicky Mar CNP LAB BLOOD BKR ORDERAB LES Final Result Performing Organization Address City/[facility]/ZIP Co de Phone Number [address] [phone] from Last 3 Months or Most Recently Relevant to Health Maintenance Insurance [facility] Care Teams Toxicology Teacher Relationship Specialty Start Date End Date Vicky Mar CNP [address] [place] [phone] [email or web address] PCP - General 02/17/17 Additional Source Comments The information contained in this document represents components of the legal health record. It is not the complete legal health record.[facility]
--- OUTSIDE RECORDS SUMMARY | 2024-12-27 18:31 | XMS_ITS | Encounter Summary ---
Author Organization [facility] Address [address] [facility] [address] [place] [phone] Phone Care Team Providers Care Sew On Operator Name Role Phone Vicky Mar CNP Primary Care Provide r Waldo Coats DO Unavailable Encounter Details Date Type Department Care Team (Latest Contact Info) Description 02/17/2021 Transcribe Orders [address] [address] Vicky Mar CNP [address] [place] [phone] [email or web address] Crohn's disease with complication, unspecified [...] documented as of this encounter Care Teams Sew On Operator Relationship Specialty Start Date End Date Vicky Mar CNP [address] [place] [address] PCP - General 02/17/17 Waldo Coats DO [address] [place] [address] Insurance Assigned Provider 05/21/2306/23 documented as of this encounter Additional Source Comments The information contained in this document represents components of the legal health record. It is not the complete legal health record.[facility]
--- OUTSIDE RECORDS SUMMARY | 2024-12-27 18:31 | XMS_ITS | Clinical Summary ---
Author Organization [employer] [facility] Address [address] [place] [address] [address], [place] [address] Care Team Providers Care Geological Technical Officer Name Role Phone Denisse Wood NP Primary Care Provider [phone] Allergies No known active allergies Medications Denise, 2 Pen, 40 MG/0.4ML Pen-injector Kit pen-injector Inject 40 mg under the skin every 14 (fourteen) days. 09/30/19 24 Active hydrOXYzine HCl (Atarax) 50 MG tablet Take 50 mg by mouth 3 times daily. 06/09/19 24 Active lidocaine (Lidoderm) 5 % patchIndications: Left upper quadrant abdominal pain Apply 1 patch topically Once per day. Remove & discard patch within 12 hours or as directed by MD. 30 patch 12/26/19 24 Active triamcinolone (Kenalog) 0.1 % ointmentIndicatio ns:Rash and nonspecific skin eruption Apply topically 2 times daily. 15 g 1 03/20/19 25 Active betamethasone, augmented, (Diprolene) 0.05 % ointmentIndicatio ns:Eczema, unspecified type Apply topically 2 times daily. 15 g 1 04/06/19 25 Active ondansetron (Zofran) 4 MG tabletIndications :Nausea Take 1 tablet by mouth every 8 hours as needed for nausea/vomit ing 30 tablet 1 04/11/19 25 Active valACYclovir (Valtrex) 500 MG tabletIndications :Herpes simplex infection of genitourinary system Take 1 tablet (500 mg) by mouth Once per day. 90 tablet 3 08/25/19 25 026 Active fluticasone (Flonase) 50 MCG/ACT nasal sprayIndications: Chronic maxillary sinusitis USE 2 SPRAYS IN EACH NOSTRIL ONCE EVERY DAY. SHAKE GENTLY. CLEAN TIP AND REPLACE CAP AFTER USE. 48 mL 10/02/19 Active naproxen (Naprosyn) 500 MG tablet Take 1 tablet (500 mg) by mouth if needed in the morning and at bedtime for mild pain or moderate pain for up to 3 days. 10 tablet 1 12/28/19 25 025 Active acetaminophen (Tylenol 8 Hour) 650 MG ER tablet Take 1 tablet (650 mg) by mouth every 8 (eight) hours if needed for mild pain. Do not crush, chew, or split. 40 tablet 1 12/28/19 25 Active Diclofenac Sodium 1 % gel Apply 2 g topically if needed in the morning, at noon, in the evening, and at bedtime (pain). 150 g 3 12/28/19 Active Diclofenac Sodium 1 % gel Apply thin layer by topical route (quantity as directed on package insert) to affected area of pain 3 times daily as needed. 50 g 3 04/10/19 25 025 Discontinued Active Problems Problem Noted Date Diagnosed Date PND (post-nasal drip) 11/09/2024 Assessment & Plan (11/26/2024 1:45 PM EDT): Blurry vision 11/09/2024 Assessment & Plan (11/26/2024 1:45 PM EDT): Crohn's disease ([facility]) 2024 Assessment & Plan (11/26/2024 1:45 PM [...] Pt stable currently on Humira followed by [facility] maintenance 10/24/2023 Assessment & Plan (10/24/2023 7:20 [...] Encounters Date Type Department Care Team Description 12/27/2024 3:00 PM EST Office Visit [facility] [address] [place] [id number] Violet Maloney DO Right foot pain (Primary Dx); Sprain of anterior talofibular ligament of right ankle, initial encounter 12/27/2024 Telephone [facility] [address] [place] [phone] Violet Maloney DO 12/27/2024 Travel 12/10/2024 10:30 AM EDT Office Visit [facility] MED[facility] [address] [place] [phone] Denisse Wood NP Cyst of ovary, unspecified laterality (Primary Dx) 12/10/2024 Travel 12/07/2024 Telephone [facility] [address] [place] [phone] Robles Sibley MA chart prep 12/05/2024 3:40 PM EDT Office Visit [facility] [address] [place] [phone] Trev Dominguez MD Right lower quadrant abdominal pain 12/05/2024 Orders Only [facility] External Provider, [facility] 12/05/2024 Telephone [facility] [address] [place] [phone] Trev Dominguez MD ED expect 12/05/2024 Travel 12/03/2024 Travel 11/26/[address] [address] Ladonna Mclean RN 11/09/2024 3:45 PM EDT Office Visit [address] [address] Denisse Wood NP PND (post-nasal drip) (Primary Dx); Blurry vision; Crohn's disease with complication, unspecified gastrointestinal tract location (CMS/HCC); Vision screen without abnormal findings 11/09/2024 Travel 11/08/[address] [address] Denisse Wood NP CHARTPREP 11/06/[address] [address] Denisse Wood NP Nurse Triage 10/30/[address] [address] Denisse Wood NP December Recall 10/03/[address] [address] Denisse Wood NP Oct recall 09/30/[address] [address] [place] Kelsea, [facility] Chronic maxillary sinusitis from Last 3 Months [...] Mass Index 20.97 12/27/2024 2:57 PM EST Plan of Treatment Upcoming Encounters Date Type Department Care Team (Late st Contact Info) Description 01/08/2025 1:00 PM EST Procedure Visit [facility] [address] [place] [address] Denisse Wood, VULCANIZER OPERATOR [address] [place] [address] 04/08/2025 1:00 PM EST Office Visit [facility] OPTOMETRY [address] [place] [address] Pipe Olamide, OD [address] [place] [address] Health Maintenance Due Date Last Done Comments HIV Screening 2000 Family Planning (PISQ) 2015 HPV Vaccines (1 - 3-dose series) 2015 Hepatitis C Screening 2018 Pap Smear 2021 DTaP/Tdap/Td Vaccines (4 - Td or Tdap) 07/24/2022 07/24/2012, 05/12/2001, 01/12/2001 COVID-19 Vaccine ( - 2024- season) 2024 02/21/2021, 07/28/2020, 06/30/2020 Influenza Vaccine (#1) 2024 Alcohol/Substance Use Screening 11/09/2025 11/09/2024 Depression Screening 11/09/2025 11/09/2024, 11/10/19 25 SDOH Screening 11/09/2025 11/09/2024 Disability Screening 12/10/2025 12/10/2024 Tobacco Screening 12/27/2025 12/27/2024 Zoster Vaccines (1 of 2) 2050 RSV [...] encounter XR FOOT 3+ VIEWS RIGHT Routine 3:50 PM EST Right foot pain Sprain of anterior talofibular ligament of right ankle, initial encounter US PELVIC OVARIAN DOPPLER Routine 12/06/2024 3:10 AM EDT US PELVIS COMPLETE Routine 12/06/2024 3: [address] ABDOMEN PELVIS W CONTRAST Routine 12/06/2024 1:25 AM EDT XR KUB AND UPRIGHT 2 VIEWS Routine 12/05/2024 6:31 PM EDT HCG, TOTAL, QN Routine 12/05/2024 6:06 PM EDT LIPASE Routine 12/05/2024 6:06 PM EDT C-REACTIVE PROTEIN Routine 12/05/2024 6: 06 PM EDT MAGNESIUM Routine 12/05/2024 6:06 PM EDT COMPREHENSIVE METABOLIC PANEL Routine 12/05/2024 6:06 PM EDT CBC WITH AUTO DIFFERENTIAL Routine 12/05/2024 6:06 PM EDT POCT , URINE Routine 12/05/2024 4:27 PM EDT Right lower quadrant abdominal pain POCT URINALYSIS DIPSTICK Routine 12/05/2024 4:27 PM EDT Right lower quadrant abdominal pain from Last 3 Months Results * XR Ankle 3+ Views Right (12/27/2024 4:10 PM EST) Anatomical Region Laterality Modality Lower Extremities, Ankle Right Radiogr aphic Imaging 12/27/2024 4:10 PM EST Narrative 12/27/2024 4:43 PM EST [address] [address] XRay Report Signed Patient: Adwoa Jara MR#: [id number] : 2000 Acct:[id number] Age/Sex: 24 / F ADM Date: 12/27/24 [facility]: Violet Maloney DO Ordering Physician: Violet Maloney DO Date of Service: 12/27/24 Procedure(s): XR ankle RT min 3V Accession Number(s): [id number] cc: Violet Maloney DO Reason for Exam: [...] by Carine Jasmine MD in OV> 12/27/24 164 DD/ 09 TD/TT: 12/27/241612 Sales Administration Manager: Procedure Note Ankitter, Image - 12/27/[address] [address] XRay Report Signed Patient: Adwoa JaraMR#: [id number] : 2000Acct:[id number] Age/Sex: 24 / FADM Date: 12/27/24 Loc: .[facility]HCX Attending Dr: Violet Maloney DO Ordering Physician: Violet Maloney DO Date of Service: 12/27/24 Procedure(s): XR ankle RT min 3V Accession Number(s): [id number] cc: Violet Maloney DO Reason for Exam: [...] by Carine Jasmine MD in OV> 12/27/24 164 DD/ TD/TT: 12/27/241612 Sales Administration Manager: Violet Maloney DO IMG XR PROCEDURES Final Resu lt * XR Foot 3+ Views Right (12/27/2024 3:50 PM EST) Anatomical Region Laterality Modality Lower Extremities, Foot Right Radiogra [facility] Imaging 12/27/2024 3:50 PM EST Narrative 12/27/2024 4:43 PM EST [address] [address] XRay Report Signed Patient: Adwoa Jara MR#: [id number] : 2000 Acct:[id number] Age/Sex: 24 / F ADM Date: 12/27/24 Loc: HO.HHCX Attending Dr: Violet Maloney DO Ordering Physician: Violet Maloney DO Date of Service: 12/27/24 Procedure(s): XR foot RT min 3V Accession Number(s): [id number] cc: Violet Maloney DO Reason for Exam: [...] 12/27/24 1641 DD/ 1550 TD/TT: 12/27/24 1613 Sales Administration Manager: Procedure Note Donotuseinterpreter, Image - 12/27/[address] [address] XRay Report Signed Patient: Adwoa JaraMR#: [id number] : 2000Acct:[id number] Age/Sex: 24 / FADM Date: 12/27/24 Loc: HO.HHCX Attending Dr: Violet Maloney DO Ordering Physician: Violet Maloney DO Date of Service: 12/27/24 Procedure(s): XR foot RT min 3V Accession Number(s): [id number] cc: Violet Maloney DO Reason for Exam: [...] by: Carine Jasmine MD 12/27/2024 04:41 PM [facility] Dictated By: Carine Jasmine MD Signed By: <Electronically signed by Carine Jasmine MD in OV> 12/27/24 1641 DD/ 1550 TD/TT: 12/27/24 1613 Sales Administration Manager: us Violet Maloney DO IMG XR PROCEDURES Final Resu lt * US PELVIC OVARIAN DOPPLER (12/06/2024 3:10 AM EDT) Anatomical Region Laterality Modality Abdomen Ultrasound 12/06/2024 3:10 AM EDT Narrative 12/24/2024 11:[address] [address] Ultrasound Report Signed Patient: Adwoa Jara MR#: [id number] : 2000 Acct:[id number] Age/Sex: 24 / F ADM Date: 12/05/24 Loc: HO.ED Attending Dr: Ordering Physician: Venkatesh Rodriguez MD Date of Service: 12/06/24 Procedure(s): US pelvic ovarian doppler Accession Number(s): [id number] cc: Venkatesh Rodriguez MD; Denisse Wood NP Reason for Exam: r/o torsion CLINICAL HISTORY: RLQ pain, cyst, r o torsion US pelvis transabdominal with Doppler Comparison: CT/SR - CT ABDOMEN PELVIS W IV CON - 12/06/24 00:29 EDT Findings: Uterus measures 8.2 x 4.1 x 4.4 cm. There is no uterine mass. Endometrium is within normal limits measuring 4 mm in thickness. Right ovary measures 5.5 x 4.2 x 5.6 cm. There is a simple right ovarian cyst measuring 4.4 x 4.1 x 4.7 cm. There is normal color Doppler and arterial/venous spectral tracings within the right ovary. Left ovary measures 2.6 x 1.4 x 2.5 cm. There is no left adnexal mass or fluid collection. There is normal color Doppler and arterial/venous spectral tracings within the left ovary. There is no free fluid in the pelvis. IMPRESSION: Simple right ovarian cyst measuring up to 4.7 cm. No ovarian torsion. Recommendations for f/u of simple ovarian cyst: (1) Pre-menopause: <= 5 cm No follow-up imaging recommended >5 cm - <=7 cm US f/u within 2-6 months recommended >7 cm US f/u within 2-6 months recommended (1) Simple Adnexal Cysts: U Consensus Conference Update on Follow-up and Reporting. Radiology. 2019;293 (2):359-371. This document has been electronically signed by: Matthias Lopes MD on 12/06/2024 03:10:19 Dictated By: Matthias Lopes MD Signed By: <Electronically signed by Matthias Lopes MD in OV> 12/24/24 1115 DD/ 9 TD/TT: 12/06/24309 Sales Administration Manager: Procedure Note Ankitter, Image - 12/24/2024 [place] [address] Ultrasound Report Signed Patient: Ivet Jara#: [id number] : 2000Acct:[id number] Age/Sex: 24 / FADM Date: 12/05/24 Loc: HO.ED Attending Dr: Ordering Physician: Venkatesh Rodriguez MD Date of Service: 12/06/24 Procedure(s): US pelvic ovarian doppler Accession Number(s): [id number] cc: Venkatesh Rodriguez MD; Denisse Wood NP Reason for Exam: r/o torsion CLINICAL HISTORY: RLQ pain, cyst, r o torsion US pelvis transabdominal with Doppler Comparison: CT/SR - CT ABDOMEN PELVIS W IV CON - 12/06/24 00:29 EDT Findings: Uterus measures 8.2 x 4.1 x 4.4 cm. There is no uterine mass. Endometrium is within normal limits measuring 4 mm in thickness. Right ovary measures 5.5 x 4.2 x 5.6 cm. There is a simple right ovarian cyst measuring 4.4 x 4.1 x 4.7 cm. There is normal color Doppler and arterial/venous spectral tracings within the right ovary. Left ovary measures 2.6 x 1.4 x 2.5 cm. There is no left adnexal mass or fluid collection. There is normal color Doppler and arterial/venous spectral tracings within the left ovary. There is no free fluid in the pelvis. IMPRESSION: Simple right ovarian cyst measuring up to 4.7 cm. No ovarian torsion. Recommendations for f/u of simple ovarian cyst: (1) Pre-menopause: <= 5 cm No follow-up imaging recommended >5 cm - <=7 cm US f/u within 2-6 months recommended >7 cm US f/u within 2-6 months recommended (1) Simple Adnexal Cysts: SRU Consensus Conference Update on Follow-up and Reporting. Radiology. 2019;293 (2):359-371. This document has been electronically signed by: Matthias Lopes MD on 12/06/2024 03:10:19 Dictated By: Matthias Lopes MD Signed By: <Electronically signed by Matthias Lopes MD in OV> 12/24/24 1115 DD/ 9 TD/TT: 12/06/24309 Sales Administration Manager: us [facility] External Provider IMG US PROCEDURES Edited Result - Final * Us Pelvis complete (12/06/2024 3:10 AM EDT) Anatomical Region Laterality Modality Pelvis Ultrasound 12/06/2024 3:10 AM EDT Narrative 12/06/2024 3:12 AM EDT [place] [address] Ultrasound Report Signed Patient: Adwoa Jara MR#: [id number] : 2000 Acct:[id number] Age/Sex: 24 / F ADM Date: 12/05/24 Loc: .ED Attending Dr: Ordering Physician: Venkatesh Rodriguez MD Date of Service: 12/06/24 Procedure(s): US pelvic complete Accession Number(s): [id number] cc: Venkatesh Rodriguez MD; Denisse Wood NP Reason for Exam: RLQ pain, cyst, r/o torsion CLINICAL HISTORY: RLQ pain, cyst, r o torsion US pelvis transabdominal with Doppler Comparison: CT/SR - CT ABDOMEN PELVIS W IV CON - 12/06/24 00:29 EDT Findings: Uterus measures 8.2 x 4.1 x 4.4 cm. There is no uterine mass. Endometrium is within normal limits measuring 4 mm in thickness. Right ovary measures 5.5 x 4.2 x 5.6 cm. There is a simple right ovarian cyst measuring 4.4 x 4.1 x 4.7 cm. There is normal color Doppler and arterial/venous spectral tracings within the right ovary. Left ovary measures 2.6 x 1.4 x 2.5 cm. There is no left adnexal mass or fluid collection. There is normal color Doppler and arterial/venous spectral tracings within the left ovary. There is no free fluid in the pelvis. IMPRESSION: Simple right ovarian cyst measuring up to 4.7 cm. No ovarian torsion. Recommendations for f/u of simple ovarian cyst: (1) Pre-menopause: <= 5 cm No follow-up imaging recommended >5 cm - <=7 cm US f/u within 2-6 months recommended >7 cm US f/u within 2-6 months recommended (1) Simple Adnexal Cysts: SRU Consensus Conference Update on Follow-up and Reporting. Radiology. 2019;293 (2):359-371. This document has been electronically signed by: Matthias Lopes MD on 12/06/2024 03:10:19 Dictated By: Matthias Lopes MD Signed By: <Electronically signed by Matthias Lopes MD in OV> 12/06/24310 DD/ 9 TD/TT: 12/06/24309 Sales Administration Manager: Procedure Note Donotuseinterpreter, Image - 12/06/2024 [place] [address] Ultrasound Report Signed Patient: Ivet Jara#: [id number] : 2000Acct:[id number] Age/Sex: 24 / FADM Date: 12/05/24 Loc: .ED Attending Dr: Ordering Physician: Venkatesh Rodriguez MD Date of Service: 12/06/24 Procedure(s): US pelvic complete Accession Number(s): [id number] cc: Venkatesh Rodriguez MD; Denisse Wood NP Reason for Exam: RLQ pain, cyst, r/o torsion CLINICAL HISTORY: RLQ pain, cyst, r o torsion US pelvis transabdominal with Doppler Comparison: CT/SR - CT ABDOMEN PELVIS W IV CON - 12/06/24 00:29 EDT Findings: Uterus measures 8.2 x 4.1 x 4.4 cm. There is no uterine mass. Endometrium is within normal limits measuring 4 mm in thickness. Right ovary measures 5.5 x 4.2 x 5.6 cm. There is a simple right ovarian cyst measuring 4.4 x 4.1 x 4.7 cm. There is normal color Doppler and arterial/venous spectral tracings within the right ovary. Left ovary measures 2.6 x 1.4 x 2.5 cm. There is no left adnexal mass or fluid collection. There is normal color Doppler and arterial/venous spectral tracings within the left ovary. There is no free fluid in the pelvis. IMPRESSION: Simple right ovarian cyst measuring up to 4.7 cm. No ovarian torsion. Recommendations for f/u of simple ovarian cyst: (1) Pre-menopause: <= 5 cm No follow-up imaging recommended >5 cm - <=7 cm US f/u within 2-6 months recommended >7 cm US f/u within 2-6 months recommended (1) Simple Adnexal Cysts: SRU Consensus Conference Update on Follow-up and Reporting. Radiology. 2019;293 (2):359-371. This document has been electronically signed by: Matthias Lopes MD on 12/06/2024 03:10:19 Dictated By: Matthias Lopes MD Signed By: <Electronically signed by Matthias Lopes MD in OV> 12/06/24310 DD/ 9 TD/TT: 12/06/24309 Sales Administration Manager: us [facility] External Provider IMG US PROCEDURES Edited Result - Final * CT Abdomen Pelvis w/ Contrast (12/06/2024 1:25 AM EDT) Anatomical Region Laterality Modality Body, Pelvis, Abdomen Computed T omography 12/06/2024 1:25 AM EDT Narrative 12/06/2024 1:27 AM EDT [address] [address] [address] Scan Report Signed Patient: Adwoa Jara MR#: [id number] : 2000 Acct:[id number] Age/Sex: 24 / F ADM Date: 12/05/24 Loc: HO.ED Attending Dr: Ordering Physician: Venkatesh Rodriguez MD Date of Service: 12/06/24 Procedure(s): CT abdomen pelvis w IV con Accession Number(s): [id number] cc: Venkatesh Rodriguez MD; Denisse Wood VULCANIZER OPERATOR Report Number: [id number]: Total DLP = 344.00 mGy-cm Reason for Exam: RLQ tender, nausea, chills, r/o appy CLINICAL HISTORY: RLQ tender, nausea, chills, r o appy CT abdomen and pelvis with contrast Comparison: None provided Findings: The lung bases are clear. The liver, gallbladder, pancreas, spleen, adrenal glands, and kidneys are unremarkable. There is a kiknmuqf-xr-huxxy amount of stool in the colon greatest in the right hemicolon. There is no bowel obstruction. The appendix is normal. There is no free fluid or free air. There is a 4.7 x 4.4 cm right ovarian cyst with Hounsfield units measuring about 26 which is greater than simple fluid. Uterus and left ovary are unremarkable. The bladder is unremarkable. There are no enlarged lymph nodes. The aorta and IVC are normal. There is no fracture or suspicious lytic or sclerotic lesion. IMPRESSION: 4.7 cm right ovarian cyst possibly hemorrhagic. Pelvic ultrasound would be recommended if there is any clinical concern for ovarian torsion. This document has been electronically signed by: Matthias Lopes MD on 12/06/2024 01:25:23 Dictated By: Matthias Lopes MD Signed By: <Electronically signed by Matthias Lopes MD in OV> 12/06/24125 DD/ 4 TD/TT: 12/06/24124 Sales Administration Manager: Procedure Note Donotuseinterpreter, Image - 12/06/[address] [address] [address] Scan Report Signed Patient: Ivet Jara#: [id number] : 2000Acct:[id number] Age/Sex: 24 / FADM Date: 12/05/24 Loc: HO.ED Attending Dr: Ordering Physician: Venkatesh Rodriguez MD Date of Service: 12/06/24 Procedure(s): CT abdomen pelvis w IV con Accession Number(s): [id number] cc: Venkatesh Rodriguez MD; Denisse Wood VULCANIZER OPERATOR Report Number: [id number]: Total DLP = 344.00 mGy-cm Reason for Exam: RLQ tender, nausea, chills, r/o appy CLINICAL HISTORY: RLQ tender, nausea, chills, r o appy CT abdomen and pelvis with contrast Comparison: None provided Findings: The lung bases are clear. The liver, gallbladder, pancreas, spleen, adrenal glands, and kidneys are unremarkable. There is a plpcmykj-aa-fohvj amount of stool in the colon greatest in the right hemicolon. There is no bowel obstruction. The appendix is normal. There is no free fluid or free air. There is a 4.7 x 4.4 cm right ovarian cyst with Hounsfield units measuring about 26 which is greater than simple fluid. Uterus and left ovary are unremarkable. The bladder is unremarkable. There are no enlarged lymph nodes. The aorta and IVC are normal. There is no fracture or suspicious lytic or sclerotic lesion. IMPRESSION: 4.7 cm right ovarian cyst possibly hemorrhagic. Pelvic ultrasound would be recommended if there is any clinical concern for ovarian torsion. This document has been electronically signed by: Matthias Lopes MD on 12/06/2024 01:25:23 Dictated By: Matthias Lopes MD Signed By: <Electronically signed by Matthias Lopes MD in OV> 12/06/24125 DD/ 4 TD/TT: 12/06/24124 Sales Administration Manager: us [facility] External Provider IMG CT PROCEDURES Edited Result - Final * XR KUB and Upright 2 Views (12/05/2024 6:31 PM EDT) Anatomical Region Laterality Modality Radiographic Karyna ging 12/05/2024 6:31 PM EDT Narrative 12/05/2024 6:33 PM EDT [address] [address] XRay Report Signed Patient: Adwoa Jara MR#: [id number] : 2000 Acct:[id number] Age/Sex: 24 / F ADM Date: 12/05/24 Loc: HO.ED Attending Dr: Ordering Physician: Mary Diehl Date of Service: 12/05/24 Procedure(s): XR KUB Accession Number(s): [id number] cc: Denisse Wood VULCANIZER OPERATOR; Mary Diehl Reason for Exam: constipation CLINICAL HISTORY: CONSTIPATION 1 view abdomen Comparison: None provided Findings: No pneumoperitoneum or pneumatosis. No abnormal calcifications. No acute fractures. Large colonic stool burden. Nonobstructive bowel-gas pattern. IMPRESSION: Large colonic stool burden. This document has been electronically signed by: Waldo Dave MD on 12/05/2024 18:31:50 Dictated By: Waldo Dave MD Signed By: <Electronically signed by Waldo Dave MD in OV> 12/05/241832 DD/ 30 TD/TT: 12/05/241830 Sales Administration Manager: Procedure Note Donotuseinterpreter, Image - 12/06/2024 [facility] [address] [place] [address] XRay Report Signed Patient: Adwoa JaraMR#: [id number] : 2000Acct:[id number] Age/Sex: 24 / FADM Date: 12/05/24 Loc: HO.ED Attending Dr: Ordering Physician: Mary Diehl Date of Service: 12/05/24 Procedure(s): XR KUB Accession Number(s): [id number] cc: Denisse Wood VULCANIZER OPERATOR; Mary Diehl Reason for Exam: constipation CLINICAL HISTORY: CONSTIPATION 1 view abdomen Comparison: None provided Findings: No pneumoperitoneum or pneumatosis. No abnormal calcifications. No acute fractures. Large colonic stool burden. Nonobstructive bowel-gas pattern. IMPRESSION: Large colonic stool burden. This document has been electronically signed by: Waldo Dave MD on 12/05/2024 18:31:50 Dictated By: Waldo Dave MD Signed By: <Electronically signed by Waldo Dave MD in OV> 12/05/241832 DD/ 30 TD/TT: 12/05/241830 Sales Administration Manager: [employer] External Provider IMG XR PROCEDURES Final Result * (ABNORMAL) CBC auto differential (12/05/2024 6:06 PM EDT) White Blood Count 9.3 4.8 - 10.8 X10*3/uL [facility] Red Blood Count 4.29 4.20 - 5.50 X10*6/uL [facility] Hemoglobin 14.1 12.0 - 16.0 g/dl [facility] Hematocrit 41.1 37.0 - 47.0 % [facility] Mean Corpuscular Volume 95.8 80.0 - 98.0 fL [facility] Mean Corpuscular Hemoglobin 32.9 27.0 - 33.0 pg [facility] Mean Corpuscular HGB Conc 34.3 31.0 - 35.0 g/dl [facility] Red Cell Distribution Width 11.9 11.0 - 16.0 % [facility] Platelet Count 268 160 - 400 X10*3/uL [facility] Mean Platelet Volume 10.4 9.4 - 12.3 fL [facility] Neutrophils Percent Auto 62.5 45 - 73 % [facility] Imm Gran Pct Auto 0.9(H) 0.0 - 0.4 % [facility] Lymphocytes Percent Auto 30.6 20 - 40 % [facility] Monocytes Percent Auto 5.6 2 - 11 % [facility] Eosinophils Percent Auto 0.2 0 - 4 % [facility] Basophils Percent Auto 0.2 0 - 2 % [facility] NRBC Pct Auto 0.0 0.0 - 0.2 /100WBC [facility] Neutrophils Absolute Auto 5.8 2.0 - 8.3 x10*3/uL [facility] Imm Gran Abs Auto 0.08(H) 0.00 - 0.03 X10*3/uL [facility] [facility] Lymphocytes Absolute Auto 2.8 1.2 - 4.9 X10*3/uL [facility] Monocytes Absolute Auto 0.5 0.1 - 1.2 X10*3/uL [facility] Eosinophils Absolute Auto 0.0 0.0 - 0.4 X10*3/uL [facility] Basophils Absolute Auto 0.0 0.0 - 0.2 X10*3/uL [facility] NRBC Abs Auto 0.000 0.0 - 0.012 X10*3/uL [facility] 12/05/2024 6:06 PM EDT 12/05/2024 6:12 PM EDT us Generic External Data Provider LAB BLOOD ORDERAB LES Final Result Performing Organization Address [facility]/ZIP Co de Phone Number [facility] [address] [place] [phone] * C-reactive Protein (12/05/2024 6:06 PM EDT) C Reactive Protein <0.10 < or = 0.50 mg/dL [facility] 12/05/2024 6:06 PM EDT 12/05/2024 6:12 PM EDT us Generic External Data Provider LAB BLOOD ORDERAB LES Final Result Performing Organization Address City/[facility]/ZIP Co de Phone Number [facility] [address] [place] [phone] [phone] * hCG, Total, Quantitative (12/05/2024 6:06 PM EDT) HCG Quantitative <2 mIU/mL [facility] Comment:Weeks post LMP Appro ximate hCG(Last Menstrual Period) Range (mIU/ml)3 - 4 weeks 9 - 1304 - 5 weeks 75 - 2,6005 - 6 weeks 850 - 20,8006 - 7 weeks 4000 - 100,2007 - 12 weeks 11,500 - 289,29938 - 16 weeks 18,300 - 137,89010 - 29 weeks (2nd trimester) 1,400 - 53,76309 - 41 weeks (3rd trimester) 940 - 60,000The Alvarado B- hCG assay is used for the early detection ofpregnancy; it cannot be used to diagnose any conditionunrelated to . If a B-hCG level is not supportedby the clinical evidence, results should be confirmed by analternative method (qualitative urine hCG, for example). 12/05/2024 6:06 PM EDT 12/05/2024 6:12 PM EDT Generic External Data Provider LAB BLOOD ORDERAB LES Final Result Performing Organization Address City/[facility]/ZIP Co de Phone Number [facility] [address] [place] [phone] * Magnesium (12/05/2024 6:06 PM EDT) Magnesium 1.8 1.6 - 2.6 mg/dL [facility] 12/05/2024 6:06 PM EDT 12/05/2024 6:12 PM EDT Generic External Data Provider LAB BLOOD ORDERAB LES Final Result Performing Organization Address [facility]/ZIP Co de Phone Number [facility] [address] [place] [phone] * Lipase (12/05/2024 6:06 PM EDT) Lipase 30 8 - 78 U/L [facility] 12/05/2024 6:06 PM EDT 12/05/2024 6:12 PM EDT us Generic External Data Provider LAB BLOOD ORDERAB LES Final Result [facility] [address] [place] [phone] * (ABNORMAL) Comprehensive Metabolic Panel (12/05/2024 6:06 PM EDT) Sodium 138 135 - 145 mmol/L [facility] Potassium 3.9 3.3 - 5.1 mmol/L [facility] Chloride 109(H) 96 - 108 mmol/L [facility] Carbon Dioxide 23 22 - 29 mmol/L [facility] Anion Gap 10(L) 12 - 20 [facility] Urea Nitrogen (BUN) 7(L) 9 - 16 mg/dL [facility] Creatinine, Serum 0.71 0.5 - 1.4 mg/dL [facility] Creatinine Clr Calc Pharmacy 105.0 [facility] Comment:Provided height and weight: 165.1 cm,54.431 kg.eGFR (calculated from the MDRD study equation) and eCrCl(calculated from the Cockcroft-Gault equation) are based ondifferent parameters and may not yield comparable results.If eCrCl result is absurd, please check patient'sheight/weight. Estimated Glomerular Filt Rate >60 [facility] Comment:Chronic Kidney Disea se: Estimated GFR < 60 mL/min/[id number] Kidney Disease: Estimated GFR < 15 mL/min/1.73m2 Glucose 173(H) 60 - 115 mg/dL [facility] Calcium 9.6 8.4 - 10.2 mg/dL [facility] Bilirubin, Total 0.4 0.0 - 1.0 mg/dL [facility] Aspartate Amino Transferase 25 5 - 31 U/L [facility] Alanine Aminotransferase 15 0 - 31 U/L [facility] Total Protein 7.7 6.5 - 8.0 g/dL [facility] Albumin Level 4.9 3.5 - 5.0 g/dL [facility] Alkaline Phosphatase 43 39 - 117 U/L [facility] 12/05/2024 6:06 PM EDT 12/05/2024 6:12 PM EDT Generic External Data Provider LAB BLOOD ORDERAB LES Final Result [facility] [address] [place] [phone] [phone] * POCT Urine (12/05/2024 4:27 PM EDT) Preg Test, Ur Negative Negative, Indeterminate, None Detected, Invalid, Specimen unsatisfactory for evaluation, Weakly Positive, 2+ QC Media Lot # [id number] Lot# Expiration Date 646 Urine 12/05/2024 4:27 PM EDT Trev Dominguez [...] Final Result from Last 3 Months Insurance [address] [place] [address] [facility] C3 Care Teams Geological Technical Officer Relationship Specialty Start Date End Date Denisse Wood NP [address] [place] [address] PCP - General Family Medicine 10/24/23
--- OUTSIDE RECORDS SUMMARY | 2024-12-27 18:31 | XMS_ITS | Encounter Summary ---
Author Organization [employer] Address [address] [facility] [address] [address] Care Team Providers Care Dairy Equipment Specialist Name Role Phone Israel Denisse SKYLA Primary Care Provider [phone] Encounter Details Date Type Department Care Team (Latest Contact Info) Description 12/27/2024 Travel Social History Tobacco Use Types Packs/Day [...] Description 01/08/2025 1:00 PM EST Procedure Visit [facility] [address] [place] [address] Denisse Wood NP [address] [place] [address] 04/08/2025 1:00 PM EST Office Visit [facility] OPT[facility] [address] [place] [address] TarkaOlamide, OD [address] [place] [address] documented as of this encounter Visit Diagnoses Not on filedocumented in this encounter Additional Health Concerns Assessment Noted Time PHQ-9 Depression Total Score: 6 11/10/19 25 4:28 PM EDT documented as of this encounter Care Teams Dairy Equipment Specialist Relationship Specialty Start Date End Date Denisse Wood NP [address] [place] [address] PCP - General Family Medicine 10/24/23 documented as of this encounter
--- OUTSIDE RECORDS SUMMARY | 2024-12-27 18:31 | XMS_ITS | Encounter Summary ---
Author Organization [employer] Address [address] [facility] 7 [place] [address] Care Team Providers Care Target Man Name Role Phone Denisse Wood NP Primary Care Provider [phone] Encounter Details Date Type Department Care Team ([facility] st Contact Info) Description 12/27/2024 Telephone [facility] [address] [place] [address] Violet Maloney DO [address] [place] [address] Social History Tobacco Use Types Packs/Day Years [...] encounter Miscellaneous Notes * Telephone Encounter - Violet Maloney DO - 12/27/2024 4:47 PM EST Spoke with patient at her home number. Advised pt that her foot and ankle xrays showed no fracture or dislocation. Reinforced treatment plan as discussed at visit. Advised rtc if no significant improvement. documented in this encounter Plan of Treatment Upcoming Encounters Date Type Department Care Team (Late st Contact Info) Description 01/08/2025 1:00 PM EST Procedure Visit [facility] [address] [place] [address] Denisse Wood NP [address] [place] [address] 04/08/2025 1:00 PM EST Office Visit [facility] OPT[facility] [address] [place] [address] Olamide Betancur OD [address] [place] [address] documented as of this encounter Visit Diagnoses Not on filedocumented in this encounter Additional Health Concerns Assessment Noted Time PHQ-9 Depression Total Score: 6 11/10/19 4:28 PM EDT documented as of this encounter Care Teams Target Man Relationship Specialty Start Date End Date Denisse Wood NP [address] [place] [phone] PCP - General Family Medicine 10/24/23 documented as of this encounter
--- OUTSIDE RECORDS SUMMARY | 2024-12-27 18:31 | XMS_ITS | Encounter Summary ---
Author Organization [facility] Address [address] [facility] [address] [place] [address] Phone Care Team Providers Care Dictionary Editor Name Role Phone Vicky Mar CNP Primary Care Provide r Waldo Coats DO Unavailable Encounter Details Date Type Department Care Team ([facility] st Contact Info) Description 04/29/2020 Transcribe Orders [facility] [address] [place] [address] Vicky Mar CNP [address] [place] [address] [place] [address] [email or web address] Social History Tobacco Use Types Packs/Day Years [...] documented as of this encounter Care Teams Dictionary Editor Relationship Specialty Start Date End Date Vicky Mar CNP [address] [place] [address] PCP - General 02/17/17 Waldo Coats DO [address] [place] [address] Insurance Assigned Provider 05/21/2306/23 documented as of this encounter Additional Source Comments The information contained in this document represents components of the legal health record. It is not the complete legal health record.[facility]
--- OUTSIDE RECORDS SUMMARY | 2024-12-27 18:31 | XMS_ITS | Encounter Summary ---
Author Organization [facility] Address [address] [facility] [address] [place] [address] Phone Care Team Providers Care Express Manager Name Role Phone Vicky Mar CNP Primary Care Provide r Waldo Coats DO Unavailable Encounter Details Date Type Department Care Team (Latest Contact Info) Description 05/15/2019 Transcribe Orders [facility] [address] [place] [address] Kurt Noriega MD [address] [address] Mild chronic ulcerative colitis without complication (Primary [...] D (TOTAL) 39 30 - 60 ng/mL [facility] Blood 05/24/2019 7:45 AM EDT 05/24/2019 8:00 AM EDT us Kurt Noriega MD LAB BLOOD BKR ORDERABLES Fin al Result [facility] [address] [place] [address] documented in this encounter Visit Diagnoses Diagnosis Mild chronic ulcerative colitis without complication- Primary documented in this encounter Additional Health Concerns Infection Onset Date Last Indicated Resolved Time CoV-Risk 12/15/2020 12/15/2020 12/25/2020 1:22 AM EST CoV-Risk 02/08/2023 02/08/2023 02/19/2023 1:22 AM EST documented as of this encounter Care Teams Express Manager Relationship Specialty Start Date End Date Vicky Mar CNP [address] [place] [address] PCP - General 02/17/17 Waldo Coats DO [address] [place] [phone] Insurance Assigned Provider 05/21/2306/23 documented as of this encounter Additional Source Comments The information contained in this document represents components of the legal health record. It is not the complete legal health record.[facility]
--- OUTSIDE RECORDS SUMMARY | 2024-12-27 18:31 | XMS_ITS | Encounter Summary ---
Author Organization [facility] Address [address] [facility] [address] [place] [address] Phone Care Team Providers Care Boring Mill Operator For Metal Name Role Phone Vicky Mar CNP Primary Care Provide r Waldo Coats DO Unavailable Encounter Details Date Type Department Care Team (Late st Contact Info) Description 09/21/2017 Transcribe Orders [address] [address] Vicky Mar CNP [address] [place] [address] [place] [address] [email or web address] Social History Tobacco Use Types Packs/Day Years [...] documented as of this encounter Care Teams Boring Mill Operator For Metal Relationship Specialty Start Date End Date Vicky Mar CNP [address] [place] [address] PCP - General 02/17/17 Waldo Coats DO [address] [place] [address] [email or web address] Insurance Assigned Provider 05/21/2306/23 documented as of this encounter Additional Source Comments The information contained in this document represents components of the legal health record. It is not the complete legal health record.[facility]
--- OUTSIDE RECORDS SUMMARY | 2024-12-27 18:31 | XMS_ITS | Encounter Summary ---
Author Organization [facility] Address [address] [facility] [address] [place] [address] Phone Care Team Providers Care Certified Pest Control Technician Name Role Phone Vicky Mar CNP Primary Care Provide r Waldo Coats DO Unavailable Encounter Details Date Type Department Care Team (Latest Contact Info) Description 04/29/2020 Transcribe Orders [facility] [address] [place] [address] [facility] MD [facility] [address] [place] [address] Crohn's disease with complication, unspecified gastrointestinal tract [...] AM EDT) Calprotectin, stool 146.0(H) <50.0 mcg/g [facility] Calprotectin Interp Positive (A) Negative [facility] Stool (Stool) 04/30/2020 9:0 6 AM EDT 04/30/2020 9:07 AM EDT Kurt Noriega MD LAB BODY FLUIDS AND STOOL OR DERABLES Final Result Performing Organization Address City/[facility] [address]/ZIP Co de Phone Number [address] [address] * C1 inhibitor, functional (04/29/2020 7:56 AM EDT) C1 INHIB FUNCTIONAL >90 %of norm [facility] Comment: (NOTE) REFERENCE VALUE >67 (Normal) 41-67 (Equivocal) <41 (Abnormal) Blood 04/29/2020 7:56 AM EDT 04/29/2020 8:25 AM EDT Kurt Noriega MD LAB BLOOD ORDERABLES Final R esult Performing Organization Address [facility] de Phone Number [facility] [address] [place] [address] * 25-OH vitamin D (04/29/2020 7:56 AM EDT) 25 OH VIT D (TOTAL) 36 30 - 60 ng/mL [facility] Blood 04/29/2020 7:56 AM EDT 04/29/2020 8:25 AM EDT Kurt Noriega MD LAB BLOOD BKR ORDERABLES Fin al Result Performing Organization Address [facility] [address]/[facility] Co de Phone Number [facility] [address] [place] [address] * (ABNORMAL) Sedimentation rate (ESR) (04/29/2020 7:56 AM EDT) Pathologist [facility] ESR 24(H) 0 - 20 mm/h [facility] Blood 04/29/2020 7:56 AM EDT 04/29/2020 8:25 AM EDT Kurt Noriega MD LAB BLOOD BKR ORDERABLES Fin al Result Performing Organization Address City/[facility] [address]/ZIP Co de Phone Number [address] [address] * C-Reactive Protein (04/29/2020 7:56 AM EDT) C REACTIVE PROTEIN 3.3 0.0 - 4.0 mg/L [facility] Blood 04/29/2020 7:56 AM EDT 04/29/2020 8:25 AM EDT Kurt Noriega MD LAB BLOOD BKR ORDERABLES Fin al Result Performing Organization Address City/[facility] [address]/[facility] Co de Phone Number [address] [address] * CBC and differential (04/29/2020 7:56 AM EDT) WBC 8.29 4.00 - 11.00 K/uL [facility] RBC 4.44 3.72 - 5.30 M/uL [facility] HGB 14.0 11.0 - 15.2 g/dL [facility] HCT 42.3 31.6 - 44.1 % [facility] PLT 312 140 - 430 K/uL [facility] MCV 95.3 78.0 - 97.0 fL [facility] MCH 31.5 25.0 - 33.0 pg [facility] MCHC 33.1 32.0 - 36.0 g/dL [facility] RDW 12.5 11.0 - 16.0 % [facility] MPV 11.0 8.4 - 12.8 [facility] NRBC 0.00 0 /100 WBCs [facility] ABSOLUTE NRBC 0.00 0 K/uL [facility] DIFF METHOD Auto [facility] NEUTS 64.8 43.0 - 75.0 % [facility] LYMPHS 23.8 18.2 - 47.4 % [facility] MONOS 9.0 4.00 - 11.00 % [facility] EOS 1.8 0.0 - 8.0 % [facility] BASOS 0.4 0.0 - 2.0 % [facility] Granulocytes, immature (%) 0.2 0.0 - 0.9 % [facility] ABSOLUTE NEUTS 5.37 1.80 - 7.70 K/uL [facility] ABSOLUTE LYMPHS 1.97 1.00 - 3.10 K/uL [facility] ABSOLUTE MONOS 0.75 0.20 - 0.80 K/uL [facility] ABSOLUTE EOS 0.15 0.00 - 0.80 K/uL [facility] ABSOLUTE BASOS 0.03 0.00 - 0.09 K/uL [facility] Granulocytes, immature 0.02 0.00 - 0.05 K/uL [facility] Blood 04/29/2020 7:56 AM EDT 04/29/2020 8:25 AM EDT Kurt Noriega MD LAB BLOOD BKR ORDERABLES Fin al Result [address] [address] * Alanine aminotransferase (ALT) (04/29/2020 7:56 AM EDT) ALT 9 0 - 40 U/L [facility] Blood 04/29/2020 7:56 AM EDT 04/29/2020 8:25 AM EDT Kurt Noriega MD LAB BLOOD BKR ORDERABLES Fin al Result Performing Organization Address City/[facility] [address]/[facility] Co de Phone Number [address] [address] * Albumin (04/29/2020 7:56 AM EDT) ALBUMIN 4.6 3.9 - 4.8 g/dL [facility] Blood 04/29/2020 7:56 AM EDT 04/29/2020 8:25 AM EDT us Kurt Noriega MD LAB BLOOD BKR ORDERABLES Fin al Result Performing Organization Address City/State/[facility] Co de Phone Number [facility] [address] [place] [address] documented in this encounter Visit Diagnoses Diagnosis Crohn's disease with complication, unspecified gastrointestinal tract location- Primary documented in this encounter Additional Health Concerns Infection Onset Date Last Indicated Resolved Time CoV-Risk 12/15/2020 12/15/2020 12/25/2020 1:22 AM EST CoV-Risk 02/08/2023 02/08/2023 02/19/2023 1:22 AM EST documented as of this encounter Care Teams Certified Pest Control Technician Relationship Specialty Start Date End Date Vicky Mar CNP [address] [place] [address] PCP - General 02/17/17 Waldo Coats DO [address] [place] [phone] Insurance Assigned Provider 05/21/2306/23 documented as of this encounter Additional Source Comments The information contained in this document represents components of the legal health record. It is not the complete legal health record.[facility]
--- OUTSIDE RECORDS SUMMARY | 2024-12-27 18:31 | XMS_ITS | Encounter Summary ---
Author Organization [employer] Address [address] [facility] [address] [address] Care Team Providers Care Therapy Site Coordinator Name Role Phone Denisse Wood NP Primary Care Provider [phone] Encounter Details Date Type Department Care Team ([facility] st Contact Info) Description 08/24/2024 Orders Only [facility] [address] [place] [address] Christianne Carroll MD [address] [place] [address] Herpes simplex infection of genitourinary system (Primary [...] Description 01/08/2025 1:00 PM EST Procedure Visit [facility] [address] [place] [address] Denisse Wood NP [address] [place] [address] 04/08/2025 1:00 PM EST Office Visit [facility] OPTOMETRY [address] [place] [address] Olamide Betancur, OD [address] [place] [address] documented as of this encounter Visit Diagnoses Diagnosis Herpes simplex infection of genitourinary system- Primary documented in this encounter Additional Health Concerns Assessment Noted Time PHQ-9 Depression Total Score: 8 10/24/19 24 9:55 AM EDT documented as of this encounter Care Teams Therapy Site Coordinator Relationship Specialty Start Date End Date Denisse Wood NP [address] [place] [address] PCP - General Family Medicine 10/24/23 documented as of this encounter
== END 2024-12-27 15:29 | disposition home or self-care (01) ==
LOC: HO.HHCX 15:28
PROVIDERS: Visit Provider Family Medicine
DX: S93.491A Sprain of other ligament of right ankle, initial encounter (principal); M79.671 Pain in right foot
CPT/HCPCS: 73610; 73630

== ENCOUNTER → 2024-12-27 15:29 | Outpatient (BNV) | payer OTHER, SELFPAY | PROVIDERS: Visit Provider Radiology Body Imaging | DX: S90.01XA Contusion of right ankle, initial encounter (principal); Z04.3 Encounter for examination and observation following other accident | CPT/HCPCS: 73610; 73630 ==

== ENCOUNTER 2025-01-03 15:19 | Outpatient (REF) | payer OTHER, SELFPAY ==
--- NOTE | ~2025-01-03 | XR_ITS ---
EXAMINATION: XR FOOT, RIGHT CLINICAL INFORMATION: persistent ankle pain, bruising, unable to bear weight COMPARISON: 12/27/2024. TECHNIQUE: AP, lateral, and oblique views of the right foot. FINDINGS: No fracture, dislocation, or suspicious bone lesion. Normal bone mineralization. Normal alignment. Joint spaces are preserved. No significant arthropathy. Normal plantar arch. Soft tissues appear normal. XR/XR foot RT min 3V IMPRESSION: Normal right foot. Electronically signed by: Son Colon MD 01/03/2025 03:58 PM EST
--- NOTE | ~2025-01-03 | XR_ITS ---
EXAMINATION: XR ANKLE, RIGHT CLINICAL INFORMATION: persistent ankle pain, bruising, unable to bear weight COMPARISON: 12/27/2024. TECHNIQUE: AP, lateral, and mortise views of the right ankle. FINDINGS: No fracture, dislocation, or suspicious bone lesion. Alignment is normal. The mortise is intact. The talar dome is normal. The subtalar joints and calcaneus appear normal. Joint spaces are preserved. No soft tissue abnormalities or evidence of ankle joint effusion. XR/XR ankle RT min 3V IMPRESSION: Normal right ankle. Electronically signed by: Son Colon MD 01/03/2025 03:54 PM BHAKTI
--- OUTSIDE RECORDS SUMMARY | 2025-01-03 15:00 | XMS_ITS | Encounter Summary ---
Author Organization [employer] Address [address] [place] [address] Care Team Providers Care Director Medical Name Role Phone Denisse Wood NP Primary Care Provider [phone] Reason for Referral * Consultation (Urgent) - Pending Review Specialty Diagnoses / Procedures Referred By Hector norman Referred To Contact Physical Therapy Diagnoses Right foot pain Acute right ankle pain Violet Maloney DO [address] [place] [address] Phone: tel: fax: Referral ID Status Reason Start Date Expiration Date Visits Requested Visits Authorized [id number] Pending Review Specialty Services Required 01/03/2026 1 1 Encounter Details Date Type Department Care Team ([facility] st Contact Info) Description 01/03/2025 3:00 PM EST Office Visit [facility] [address] [place] [address] Violet Maloney DO [address] [place] [address] Right foot pain (Primary Dx); Acute right ankle pain Social History Tobacco Use Types Packs/Day [...] Sign Reading Time Taken Comments Blood Pressure 128/70 01/03/2025 2:56 PM EST Pulse 89 01/03/2025 2:56 PM EST Temperature 36.9 C (98.4 F) 01/03/2025 2:56 PM EST Respiratory Rate 19 01/03/2025 2:56 PM EST Oxygen Saturation 98% 01/03/2025 2:56 PM EST Inhaled Oxygen Concentration - - Weight - - Height 165.1 cm (5' 5 ) 01/03/2025 2:56 PM EST Body Mass Index - - documented in this encounter Progress Notes * Violet Maloney DO - 01/03/2025 3:00 PM EST SUBJECTIVE: Adwoa Jara is a 24 y.o. year old female who presents for sick visit. HPI She comes to [place] c/o sprained ankle. She was seen by me in [place] last week with R ankle pain and swelling s/p fall. Her xrays showed no acute fracture and she was treated for ankle sprain. She says that the swelling and bruising is a lot better and she can move her ankle up and down but having a lot of discomfort moving her foot side to side. She is still unable to bear weight. She says that she can put the front of her foot down but as soon as she puts her heel to the ground she gets a shooting pain up into her ankle/calf. She is still relying on her crutches. She stopped using the naprosyn but is still using the tylenol. She hasn't tried the diclofenac gel yet. She works at the [employer] in [place]. 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 The incident occurred at work. The injury mechanism wasa fall and an inversion injury. The pain is present in the right ankle. The pain is moderate. The pain has been Constant since onset. Associated symptoms include an inability to bear weight. Pertinent negatives include no loss of motion, loss of sensation, muscle weakness, numbness or tingling. Thesymptoms are aggravated by weight bearing. She has tried acetaminophen for the symptoms. The treatment provided mild relief. Review of Systems Constitutional: Negative for chills and fever. Respiratory: Negative for shortness of breath. Cardiovascular: Negative for chest pain and leg swelling. Gastrointestinal: Negative for abdominal pain, diarrhea and vomiting. Neurological: Negative for tingling, numbness and headaches. Patient Active Problem List Diagnosis HSV infection Crohn's disease of both small and large intestine without complication ([facility]) Healthcare maintenance Seasonal allergic rhinitis due to pollen Cervicitis Crohn's disease (CMS/HCC) (HCC) IBS (irritable bowel syndrome) Irregular periods Vulvar burning Herpes simplex infection of genitourinary system Chronic maxillary sinusitis PND (post-nasal drip) Blurry vision No Known Allergies OBJECTIVE Vitals: 01/03/25 1456 BP: 128/70 BP Location: Right arm Patient Position: Sitting BP Cuff Size: Adult Pulse: 89 Resp: 19 Temp: 98.4 ??F (36.9 ??C) TempSrc: Oral SpO2: 98% Height: 5' 5 (1.651 m) Physical Exam [...] Decreased range of motion. Normal pulse. Comments: Ambulates with crutches. Resolving ecchymosis. Minimal swelling. Mild TTP Neurological: General: No focal deficit present. Mental Status: She is alert and oriented to person, place, and time. Cranial Nerves: No cranial nerve deficit. Motor: No weakness. Psychiatric: Mood and Affect: Mood normal. ASSESSMENT/PLAN Diagnoses and all orders for this visit: Right foot pain Acute right ankle pain Probable severe sprain with continued pain/TTP and inability to bear weight -provided reassurance -foot/ankle xrays with no acute fracture or dislocation Dec 2024 -> referred for repeat to ensure no missed fracture -cont tylenol prn -encouraged trial small amt of diclofenac gel and use prn -cont ice therapy -cont GUERA wrap and crutches -referred to PT -consider evaluation with ortho if no improvment -advised no work x three weeks, work note provided -advised rtc if symptoms change or worsen, she agrees with plans - XR Foot 3+ Views Right; Future - XR Ankle 3+ Views Right; Future F/U with PCP as scheduled or sooner prn Current Outpatient Medications: acetaminophen (Tylenol 8 Hour) 650 MG ER tablet, Take 1 tablet (650 mg) by mouth every 8 (eight) hours if needed for mild pain. Do not crush, chew, or split., Disp: 40 tablet, Rfl: 1 betamethasone, augmented, (Diprolene) 0.05 % ointment, Apply topically 2 times daily., Disp: 15 g, Rfl: 1 Diclofenac Sodium 1 % gel, Apply 2 g topically if needed in the morning, at noon, in the evening, and at bedtime (pain)., Disp: 150 g, Rfl: 3 fluticasone (Flonase) 50 MCG/ACT [...] Description 01/08/2025 1:00 PM EST Procedure Visit [facility] [address] [place] [address] Denisse Wood NP [address] [place] [address] 04/08/2025 1:00 PM EST Office Visit [facility] [address] [place] [address] Olamide Betancur, HARSH [address] [place] [address] Scheduled Referrals Name Type Priority Associated Diagnoses Orde r Schedule Referral to Physical Therapy Outpatient Referral Urgent Right foot pain Acute right ankle pain Expected: 01/03/2025 (Approximate), Expires: 01/03/2026 documented as of this encounter Procedures Procedure Name Priority Date/Time Associated Diagnosis Comments XR FOOT 3+ VIEWS RIGHT Routine 01/03/2025 3:40 PM EST Right foot pain Acute right ankle pain XR ANKLE 3+ VIEWS RIGHT Routine 01/03/2025 3:40 PM EST Right foot pain Acute right ankle pain documented in this encounter Results * XR Ankle 3+ Views Right (01/03/2025 3:40 PM EST) Anatomical Region Laterality Modality Lower Extremities, Ankle Right Radiogr aphic Imaging 01/03/2025 3:40 PM EST Narrative 01/03/2025 3:57 PM EST [address] [address] XRay Report Signed Patient: Adwoa Jara MR#: [id number] : 2000 Acct:[id number] Age/Sex: 24 / F ADM Date: 01/03/25 [facility]: [facility] Attending Dr: Violet Maloney DO Ordering Physician: Violet Maloney DO Date of Service: 01/03/25 Procedure(s): XR ankle RT min 3V Accession Number(s): [id number] cc: Violet Maloney DO Reason for Exam: persistent ankle pain, bruising, unable to bear weight EXAMINATION: XR ANKLE, RIGHT CLINICAL INFORMATION: persistent ankle pain, bruising, unable to bear weight COMPARISON: 12/27/2024. TECHNIQUE: AP, lateral, and mortise views of the right ankle. FINDINGS: No fracture, dislocation, or suspicious bone lesion. Alignment is normal. The mortise is intact. The talar dome is normal. The subtalar joints and calcaneus appear normal. Joint spaces are preserved. No soft tissue abnormalities or evidence of ankle joint effusion. XR/XR ankle RT min 3V IMPRESSION: Normal right ankle. Electronically signed by: Son Colon MD 01/03/2025 03:54 PM EST Dictated By: Son Colon MD Signed By: <Electronically signed by Son Colon MD in OV> 01/03/25 1554 DD/ 1540 TD/TT: 01/03/25 154 Hydrogen Operator: Procedure Note Donotuseinterpreter, Image - 01/03/2025 [facility] [address] [place] [address] XRay Report Signed Patient: Adwoa JaraMR#: [id number] : 2000Acct:[id number] Age/Sex: 24 / FADM Date: 01/03/25 Loc: [facility] Attending Dr: Violet Maloney DO Ordering Physician: Violet Maloney DO Date of Service: 01/03/25 Procedure(s): XR ankle RT min 3V Accession Number(s): [id number] cc: Violet Maloney DO Reason for Exam: persistent ankle pain, bruising, unable to bear weight EXAMINATION: XR ANKLE, RIGHT CLINICAL INFORMATION: persistent ankle pain, bruising, unable to bear weight COMPARISON: 12/27/2024. TECHNIQUE: AP, lateral, and mortise views of the right ankle. FINDINGS: No fracture, dislocation, or suspicious bone lesion. Alignment is normal. The mortise is intact. The talar dome is normal. The subtalar joints and calcaneus appear normal. Joint spaces are preserved. No soft tissue abnormalities or evidence of ankle joint effusion. XR/XR ankle RT min 3V IMPRESSION: Normal right ankle. Electronically signed by: Son Colon MD 01/03/2025 03:54 PM EST Dictated By: Son Colon MD Signed By: <Electronically signed by Son Colon MD in OV> 01/03/25 1554 DD/ 1540 TD/TT: 01/03/251540 Hydrogen Operator: Violet Maloney DO IMG XR PROCEDURES Final Resu lt * XR Foot 3+ Views Right (01/03/2025 3:40 PM EST) Anatomical Region Laterality Modality Lower Extremities, Foot Right Radiogra phic Imaging 01/03/2025 3:40 PM EST Narrative 01/03/2025 4:01 PM EST [facility] [address] [place] [address] XRay Report Signed Patient: Adwoa Jara MR#: [id number] : 2000 Acct:[id number] Age/Sex: 24 / F ADM Date: 01/03/25 Loc: [facility] Attending Dr: Violet Maloney DO Ordering Physician: Violet Maloney DO Date of Service: 01/03/25 Procedure(s): XR foot RT min 3V Accession Number(s): [id number] cc: Violet Maloney DO Reason for Exam: persistent ankle pain, bruising, unable to bear weight EXAMINATION: XR FOOT, RIGHT CLINICAL INFORMATION: persistent ankle pain, bruising, unable to bear weight COMPARISON: 12/27/2024. TECHNIQUE: AP, lateral, and oblique views of the right foot. FINDINGS: No fracture, dislocation, or suspicious bone lesion. Normal bone mineralization. Normal alignment. Joint spaces are preserved. No significant arthropathy. Normal plantar arch. Soft tissues appear normal. XR/XR foot RT min 3V IMPRESSION: Normal right foot. Electronically signed by: Son Colon MD 01/03/2025 03:58 PM EST Dictated By: Son Colon MD Signed By: <Electronically signed by Son Colon MD in OV> 01/03/25 1558 DD/ 1540 TD/TT: 01/03/25 1541 Hydrogen Operator: Procedure Note Donotuseinterpreter, Image - 01/03/2025 [facility] [address] [place] [address] XRay Report Signed Patient: Adwoa JaraMR#: [id number] : 2000Acct:[id number] Age/Sex: 24 / FADM Date: 01/03/25 Loc: [facility] Attending Dr: Violet Maloney DO Ordering Physician: Violet Maloney DO Date of Service: 01/03/25 Procedure(s): XR foot RT min 3V Accession Number(s): [id number] cc: Violet Maloney DO Reason for Exam: persistent ankle pain, bruising, unable to bear weight EXAMINATION: XR FOOT, RIGHT CLINICAL INFORMATION: persistent ankle pain, bruising, unable to bear weight COMPARISON: 12/27/2024. TECHNIQUE: AP, lateral, and oblique views of the right foot. FINDINGS: No fracture, dislocation, or suspicious bone lesion. Normal bone mineralization. Normal alignment. Joint spaces are preserved. No significant arthropathy. Normal plantar arch. Soft tissues appear normal. XR/XR foot RT min 3V IMPRESSION: Normal right foot. Electronically signed by: Son Colon MD 01/03/2025 03:58 PM [facility] Dictated By: Son Colon MD Signed By: <Electronically signed by Son Colon MD in OV> 01/03/25 1558 DD/ 1540 TD/TT: 01/03/25 1541 Hydrogen Operator: Violet Maloney DO IMG XR PROCEDURES Final Resu lt documented in this encounter Visit Diagnoses Diagnosis Right foot pain- Primary Pain in soft tissues of limb Acute right ankle pain documented in this encounter Additional Health Concerns Assessment Noted Time PHQ-9 Depression Total Score: 6 11/10/19 4:28 PM EDT documented as of this encounter Care Teams Director Medical Relationship Specialty Start Date End Date Denisse Wood NP [address] [place] [id number] PCP - General Family Medicine 10/24/23 documented as of this encounter
--- OUTSIDE RECORDS SUMMARY | 2025-01-03 20:33 | XMS_ITS | Encounter Summary ---
Author Organization [employer] Address [address] [facility] [address], [place] [address] Care Team Providers Care Coding Compliance Auditor Name Role Phone Denisse Wood NP Primary Care Provider Encounter Details Date Type Department Care Team ([facility] st Contact Info) Description 08/24/2024 Orders Only [facility] [address] [place] [address] Christianne Carroll MD [address] [place] [address] Herpes simplex infection of genitourinary system (Primary [...] 1:00 PM EST Procedure Visit [facility] [address] [place] [address] Denisse Wood NP [address] [place] [address] 04/08/2025 1:00 PM EST Office Visit [facility] [address] [place] [address] Olamide Betancur, OD [address] [place] [address] documented as of this encounter Visit Diagnoses Diagnosis Herpes simplex infection of genitourinary system- Primary documented in this encounter Additional Health Concerns Assessment Noted Time PHQ-9 Depression Total Score: 8 10/24/19 24 9:55 AM EDT documented as of this encounter Care Teams Coding Compliance Auditor Relationship Specialty Start Date End Date Denisse Wood NP [address] [place] [address] PCP - General Family Medicine 10/24/23 documented as of this encounter
--- OUTSIDE RECORDS SUMMARY | 2025-01-03 20:33 | XMS_ITS | Clinical Summary ---
Author Organization [facility] [address] [facility] Address [address] [place] [address] Phone Care Team Providers Care Casting Supervisor Name Role Phone Denisse Wood JUAN Primary Care Provider Allergies No known active allergies Medications valACYclovir [...] disease with complication, unspecified gastrointestinal tract location ([facility] V24, [facility] V28) Inject 0.4 mL (40 mg total) under the skin every 14 (fourteen) days. 1 each 2 08/20/2 025 2024 Discontinued Surgical History Surgery Date [...] of both smal l and large intestine ([facility] V24, [facility] V28) 04/19/2018 mild ileitis, lef t sided [...] Care Team (Late st Contact Info) Description 02/11/2025 10:10 AM EST Office Visit Gastroenterology - [address] [place] [id number] Farrah Goldberg PA [address] [facility] [address] [place] [address] Health Maintenance Due Date Last Done Comments [...] topic Insurance MEDICAID - [place] Care Teams Casting Supervisor Relationship Specialty Start Date End Date Denisse Wood FNP [address] [place] [phone] PCP - General Nurse Practitioner 02/27/24
--- OUTSIDE RECORDS SUMMARY | 2025-01-03 20:34 | XMS_ITS | Encounter Summary ---
Author Organization [employer] Address [address] [facility] [address], [place] [address] Care Team Providers Care Electronic Organ Technician Name Role Phone IsraelDenisse SKYLA Primary Care Provider [phone] Encounter Details Date Type Department Care Team (Latest Contact Info) Description 01/03/2025 Travel Social History Tobacco Use Types Packs/Day [...] Description 01/08/2025 1:00 PM EST Procedure Visit [facility] [address] [place] [address] Denisse Wood NP [address] [place] [address] 04/08/2025 1:00 PM EST Office Visit [facility] [address] [place] [address] TarkaOlamide, OD [address] [place] [address] documented as of this encounter Visit Diagnoses Not on filedocumented in this encounter Additional Health Concerns Assessment Noted Time PHQ-9 Depression Total Score: 6 11/10/19 25 4:28 PM EDT documented as of this encounter Care Teams Electronic Organ Technician Relationship Specialty Start Date End Date Denisse Wood NP [address] [place] [address] PCP - General Family Medicine 10/24/23 documented as of this encounter
--- OUTSIDE RECORDS SUMMARY | 2025-01-03 20:34 | XMS_ITS | Clinical Summary ---
Author Organization [employer] Address [address] [place] [address] [address] [address] Care Team Providers Care Atomic Spectroscopist Name Role Phone Denisse Wood NP Primary Care Provider [phone] Allergies No known active allergies Medications Hummiguel angel, 2 Pen, 40 MG/0.4ML Pen-injector Kit [...] REPLACE CAP AFTER USE. 48 mL 10/02/19 25 Active acetaminophen (Tylenol 8 Hour) 650 MG ER tablet Take 1 tablet (650 mg) by mouth every 8 (eight) hours if needed for mild pain. Do not crush, chew, or split. 40 tablet 1 12/28/19 25 025 Active Diclofenac Sodium 1 % gel Apply 2 g topically if needed in the morning, at noon, in the evening, and at bedtime (pain). 150 g 3 12/28/19 Active Diclofenac Sodium 1 % gel Apply thin layer by topical route (quantity as directed on package insert) to affected area of pain 3 times daily as needed. 50 g 3 04/10/19 25 025 Discontinued naproxen (Naprosyn) 500 MG tablet Take 1 tablet (500 mg) by mouth if needed in the morning and at bedtime for mild pain or moderate pain for up to 3 days. 10 tablet 1 12/28/19 25 025 Active Problems Problem Noted Date Diagnosed Date PND (post-nasal drip) 11/09/2024 Assessment & Plan (11/26/2024 1:45 PM EDT): Blurry vision 11/09/2024 Assessment & Plan (11/26/2024 1:45 PM EDT): Crohn's disease ([facility]) 2024 Assessment & Plan (11/26/2024 1:45 PM [...] Pt stable currently on Humira followed by [facility] maintenance 10/24/2023 Assessment & Plan (10/24/2023 7:20 [...] Encounters Date Type Department Care Team Description 01/03/2025 3:00 PM EST Office Visit [facility] [address] [place] [phone] Violet Maloney DO Right foot pain (Primary Dx); Acute right ankle pain 01/03/2025 Travel 12/27/2024 3:00 PM EST Office Visit [facility] [address] [place] [phone] Violet Maloney DO Right foot pain (Primary Dx); Sprain of anterior talofibular ligament of right ankle, initial encounter 12/27/2024 Telephone [facility] [address] [place] [phone] Violet Maloney DO 12/27/2024 Travel 12/10/2024 10:30 AM EDT Office Visit [facility] [address] [place] [phone] Denisse Wood NP Cyst of ovary, unspecified laterality (Primary Dx) 12/10/2024 Travel 12/07/2024 Telephone [facility] [address] [place] [phone] Robles iSbley [place] chart prep 12/05/2024 3:40 PM EDT Office Visit [facility] [address] [address] Trev Dominguez MD Right lower quadrant abdominal pain 12/05/2024 Orders Only [facility] External Provider, [facility] 12/05/2024 Telephone [facility] [address] [address] Trev Dominguez MD ED expect 12/05/2024 Travel 12/03/2024 Travel 11/26/[address] [address] Ladonna Mclean RN 11/09/2024 3:45 PM EDT Office Visit [address] [address] Denisse Wood NP PND (post-nasal drip) (Primary Dx); Blurry vision; Crohn's disease with complication, unspecified gastrointestinal tract location ([facility]); Vision screen without abnormal findings 11/09/2024 Travel 11/08/[address] [address] Denisse Wood NP CHARTPREP 11/06/[address] [address] Denisse Wood NP Nurse Triage 10/30/[address] [address] Denisse Wood NP November Recall 10/03/[address] [address] Denisse Wood NP Sep recall from Last 3 Months Social History Tobacco [...] EST Height 165.1 cm (5' 5 ) 01/03/2025 2:56 PM EST Body Mass Index 20.97 12/27/2024 2:57 PM EST Plan of Treatment Upcoming Encounters Date Type Department Care Team (Late st Contact Info) Description 01/08/2025 1:00 PM EST Procedure Visit [facility] [address] [place] [address] Denisse Wood, SKYLA [address] [place] [address] 04/08/2025 1:00 PM EST Office Visit [facility] [address] [place] [address] Pipe Olamide, OD [address] [place] [address] Health Maintenance Due Date Last Done Comments HIV Screening 2000 Family Planning (PISQ) 2015 HPV Vaccines (1 - 3-dose series) 2015 Hepatitis C Screening 2018 Pap Smear 2021 DTaP/Tdap/Td Vaccines (4 - Td or Tdap) 07/24/2022 07/24/2012, 05/12/2001, 01/12/2001 COVID-19 Vaccine ( - 2024- season) 2024 02/21/2021, 07/28/2020, 06/30/2020 Influenza Vaccine (#1) 2024 Alcohol/Substance Use Screening 11/09/2025 11/09/2024 Depression Screening 11/09/2025 11/09/2024, 11/10/19 SDOH Screening 11/09/2025 11/09/2024 Disability Screening 12/10/2025 12/10/2024 Tobacco Screening 01/03/2026 01/03/2025 Zoster Vaccines (1 of 2) 2050 RSV [...] Comments XR ANKLE 3+ VIEWS RIGHT Routine 01/03/2025 3:40 PM EST Right foot pain Acute right ankle pain XR FOOT 3+ VIEWS RIGHT Routine 5 3:40 PM EST Right foot pain Acute right ankle pain XR ANKLE 3+ VIEWS RIGHT Routine 12/27/2024 4:10 PM EST Right foot pain Sprain of anterior talofibular ligament of right ankle, initial encounter XR FOOT 3+ VIEWS RIGHT Routine 5 3:50 PM EST Right foot pain Sprain [...] from Last 3 Months Results * XR Foot 3+ Views Right (01/03/2025 3:40 PM EST) Only the most recent of2 resultswithin the time period is included. Anatomical Region Laterality Modality Lower Extremities, Foot Right [facility] 01/03/2025 3:40 PM EST Narrative 01/03/2025 4:01 [place] [address] XRay Report Signed Patient: Adwoa Jara MR#: [id number] : 2000 Acct:[id number] Age/Sex: 24 / F ADM Date: 01/03/25 Loc: HO.HHCX Attending Dr: Violet Maloney DO Ordering Physician: Violet Maloney DO Date of Service: 01/03/25 Procedure(s): XR foot RT min 3V Accession Number(s): [id number] cc: Violet Maloney DO Reason for Exam: [...] Son Colon MD 01/03/2025 03:58 PM EST RP Dictated By: Son Colon MD Signed By: <Electronically signed by Son Colon MD in OV> 01/03/25 1558 DD/ 1540 TD/TT: 01/03/25 154 Pizzamaker: Procedure Note Donotuseinterpreter, Image - 01/03/[address] [address] XRay Report Signed Patient: Ivet Jara#: [id number] : 2000Acct:[id number] Age/Sex: 24 / FADM Date: 01/03/25 Loc: .HHCX Attending Dr: Violet Maloney DO Ordering Physician: Violet Maloney DO Date of Service: 01/03/25 Procedure(s): XR foot RT min 3V Accession Number(s): [id number] cc: Violet Maloney DO Reason for Exam: [...] Son Colon MD 01/03/2025 03:58 PM EST RP Dictated By: Son Colon MD Signed By: <Electronically signed by Son Colon MD in OV> 01/03/25 1558 DD/ 1540 TD/TT: 01/03/25 154 Pizzamaker: us Violet Maloney DO IMG XR PROCEDURES Final Resu lt * XR Ankle 3+ Views Right (01/03/2025 3:40 PM EST) Only the most recent of2 resultswithin the time period is included. Anatomical Region Laterality Modality Lower Extremities, Ankle Right Radiogr [facility] 01/03/2025 3:40 PM EST Narrative 01/03/2025 3:57 PM EST [address] [address] XRay Report Signed Patient: Adwoa Jara MR#: [id number] : 2000 Acct:[id number] Age/Sex: 24 / F ADM Date: 01/03/25 Loc: HO.HHCX Attending Dr: Violet Maloney DO Ordering Physician: Violet Maloney DO Date of Service: 01/03/25 Procedure(s): XR ankle RT min 3V Accession Number(s): [id number] cc: Violet Maloney DO Reason for Exam: [...] OV> 01/03/25 1554 DD/ 1540 TD/TT: 01/03/25 1541 Pizzamaker: Procedure Note Donotuseinterpreter, Image - 01/03/[address] [place] [address] XRay Report Signed Patient: Adwoa JaraMR#: [id number] : 2000Acct:[id number] Age/Sex: 24 / FADM Date: 01/03/25 Loc: HO.HHCX Attending Dr: Violet Maloney DO Ordering Physician: Violet Maloney DO Date of Service: 01/03/25 Procedure(s): XR ankle RT min 3V Accession Number(s): [id number] cc: Violet Maloney DO Reason for Exam: [...] OV> 01/03/25 1554 DD/ 1540 TD/TT: 01/03/25 1541 Pizzamaker: us Violet Maloney DO IMG XR PROCEDURES Final Resu lt * US PELVIC OVARIAN DOPPLER (12/06/2024 3:10 AM EDT) Anatomical Region Laterality Modality Abdomen Ultrasound 12/06/2024 3:10 AM EDT Narrative 12/24/2024 11:15 AM EST [facility] [address] [place] [address] Ultrasound Report Signed Patient: Adwoa Jara MR#: [id number] : 2000 Acct:[id number] Age/Sex: 24 / F ADM Date: 12/05/24 Loc: HO.ED Attending Dr: Ordering Physician: Venkatesh Rodriguez MD Date of Service: 12/06/24 Procedure(s): US pelvic ovarian doppler Accession Number(s): [id number] cc: Venkatesh Rodriguez MD; Denisse Wood NP [...] signed by Matthias Lopes MD in OV> 11/10/25 1115 DD/ 9 TD/TT: 12/06/[address]309 Pizzamaker: Procedure Note Ankitter, Image - 12/24/2024 [place] [address] Ultrasound Report Signed Patient: Adwoa JaraMR#: [id number] : 2000Acct:[id number] Age/Sex: 24 / FADM Date: 12/05/24 Loc: HO.ED Attending Dr: Ordering Physician: Venkatesh Rodriguez MD Date of Service: 12/06/24 Procedure(s): US pelvic ovarian doppler Accession Number(s): [id number] cc: Venkatesh Rodriguez MD; Denisse Wood NP [...] OV> 12/24/24 1115 DD/ 9 TD/TT: 12/06/24309 Pizzamaker: us [facility] External Provider IMG US PROCEDURES Edited Result - Final * Us Pelvis complete (12/06/2024 3:10 AM EDT) Anatomical Region Laterality Modality Pelvis Ultrasound 12/06/2024 3:10 AM EDT Narrative 12/06/2024 3:12 AM EDT [place] [address] Ultrasound Report Signed Patient: Adwoa Jara MR#: [id number] : 2000 Acct:[id number] Age/Sex: 24 / F ADM Date: 12/05/24 Loc: .ED Attending Dr: Ordering Physician: Venkatesh Rodriguez MD Date of Service: 12/06/24 Procedure(s): US pelvic complete Accession Number(s): [id number] cc: Venkatesh Rodriguez MD; Denisse Wood NP [...] in OV> 12/06/24310 DD/ 9 TD/TT: 12/06/24309 Pizzamaker: Procedure Note Donotuseinterpreter, Image - 12/06/2024 [place] [address] Ultrasound Report Signed Patient: Ivet Jara#: [id number] : 2000Acct:[id number] Age/Sex: 24 / FADM Date: 12/05/24 Loc: .ED Attending Dr: Ordering Physician: Venkatesh Rodriguez MD Date of Service: 12/06/24 Procedure(s): US pelvic complete Accession Number(s): [id number] cc: Venkatesh Rodriguez MD; Denisse Wood NP [...] in OV> 12/06/24310 DD/ 9 TD/TT: 12/06/24309 Pizzamaker: us [facility] External Provider IMG US PROCEDURES Edited Result - Final * CT Abdomen Pelvis w/ Contrast (12/06/2024 1:25 AM EDT) Anatomical Region Laterality Modality Body, Pelvis, Abdomen Computed T omography 12/06/2024 1:25 AM EDT Narrative 12/06/2024 1:27 AM EDT [address] [address] [address] Scan Report Signed Patient: Adwoa Jara MR#: [id number] : 2000 Acct:[id number] Age/Sex: 24 / F ADM Date: 12/05/24 Loc: HO.ED Attending Dr: Ordering Physician: Venkatesh Rodriguez MD Date of Service: 12/06/24 Procedure(s): CT abdomen pelvis w IV con Accession Number(s): [id number] cc: Venkatesh Rodriguez MD; Denisse Wood DISPLAY MANAGER Report Number: [id number]: Total DLP = 344.00 mGy-cm Reason for Exam: RLQ tender, nausea, chills, r/o appy CLINICAL HISTORY: RLQ tender, nausea, chills, r o appy CT abdomen and pelvis with contrast Comparison: None provided Findings: The lung bases are clear. The liver, gallbladder, pancreas, spleen, adrenal glands, and kidneys are unremarkable. There is a dqtxlldt-tq-gxruf amount of stool in the colon greatest [...] in OV> 12/06/24125 DD/ 4 TD/TT: 12/06/24124 Pizzamaker: Procedure Note Donotuseinterpreter, Image - 12/06/[address] [address] [address] Scan Report Signed Patient: Ivet Jara#: [id number] : 2000Acct:[id number] Age/Sex: 24 / FADM Date: 12/05/24 Loc: HO.ED Attending Dr: Ordering Physician: Venkatesh Rodriguez MD Date of Service: 12/06/24 Procedure(s): CT abdomen pelvis w IV con Accession Number(s): [id number] cc: Venkatesh Rodriguez MD; Denisse Wood DISPLAY MANAGER Report Number: [id number]: Total DLP = 344.00 mGy-cm Reason for Exam: RLQ tender, nausea, chills, r/o appy CLINICAL HISTORY: RLQ tender, nausea, chills, r o appy CT abdomen and pelvis with contrast Comparison: None provided Findings: The lung bases are clear. The liver, gallbladder, pancreas, spleen, adrenal glands, and kidneys are unremarkable. There is a dbhcegyc-fc-zcqps amount of stool in the colon greatest [...] in OV> 12/06/24125 DD/ 4 TD/TT: 12/06/24124 Pizzamaker: us [facility] External Provider IMG CT PROCEDURES Edited Result - Final * XR KUB and Upright 2 Views (12/05/2024 6:31 PM EDT) Anatomical Region Laterality Modality Radiographic Karyna ging 12/05/2024 6:31 PM EDT Narrative 12/05/2024 6:33 PM EDT [address] [address] XRay Report Signed Patient: Adwoa Jara MR#: [id number] : 2000 Acct:[id number] Age/Sex: 24 / F ADM Date: 12/05/24 Loc: HO.ED Attending Dr: Ordering Physician: Mary Diehl Date of Service: 12/05/24 Procedure(s): XR KUB Accession Number(s): [id number] cc: Denisse Wood NP; Mary Diehl Reason for Exam: constipation CLINICAL [...] in OV> 12/05/241832 DD/ 30 TD/TT: 12/05/241830 Pizzamaker: Procedure Note Donotuseinterpreter, Image - 12/06/[address] [address] XRay Report Signed Patient: Adwoa JaraMR#: [id number] : 2000Acct:[id number] Age/Sex: 24 / FADM Date: 12/05/24 Loc: HO.ED Attending Dr: Ordering Physician: Mary Diehl Date of Service: 12/05/24 Procedure(s): XR KUB Accession Number(s): [id number] cc: Denisse Wood NP; Mary Diehl Reason for Exam: constipation CLINICAL [...] in OV> 12/05/241832 DD/ 30 TD/TT: 12/05/241830 Pizzamaker: [facility] External Provider IMG XR PROCEDURES Final Result * (ABNORMAL) CBC auto differential (12/05/2024 6:06 PM EDT) White Blood Count 9.3 4.8 - 10.8 X10*3/uL [facility] Red Blood Count 4.29 4.20 - 5.50 X10*6/uL [facility] Hemoglobin 14.1 12.0 - 16.0 g/dl [facility] Hematocrit 41.1 37.0 - 47.0 % [facility] Mean Corpuscular Volume 95.8 80.0 - 98.0 fL [facility] Mean Corpuscular Hemoglobin 32.9 27.0 - 33.0 pg [facility] Mean Corpuscular HGB Conc 34.3 31.0 - 35.0 g/dl [facility] Red Cell Distribution Width 11.9 11.0 - 16.0 % [facility] Platelet Count 268 160 - 400 X10*3/uL [facility] Mean Platelet Volume 10.4 9.4 - 12.3 fL [facility] Neutrophils Percent Auto 62.5 45 - 73 % [facility] Imm Gran Pct Auto 0.9(H) 0.0 - 0.4 % [facility] Lymphocytes Percent Auto 30.6 20 - 40 % [facility] Monocytes Percent Auto 5.6 2 - 11 % [facility] Eosinophils Percent Auto 0.2 0 - 4 % [facility] Basophils Percent Auto 0.2 0 - 2 % [facility] NRBC Pct Auto 0.0 0.0 - 0.2 /100WBC [facility] Neutrophils Absolute Auto 5.8 2.0 - 8.3 x10*3/uL [facility] Imm Gran Abs Auto 0.08(H) 0.00 - 0.03 X10*3/uL [facility] Lymphocytes Absolute Auto 2.8 1.2 - 4.9 X10*3/uL [facility] Monocytes Absolute Auto 0.5 0.1 - 1.2 X10*3/uL [facility] Eosinophils Absolute Auto 0.0 0.0 - 0.4 X10*3/uL [facility] Basophils Absolute Auto 0.0 0.0 - 0.2 X10*3/uL [facility] NRBC Abs Auto 0.000 0.0 - 0.012 X10*3/uL [facility] 12/05/2024 6:06 PM EDT 12/05/2024 6:12 PM EDT us Generic External Data Provider LAB BLOOD ORDERAB LES Final Result Performing Organization Address [facility]/ZIP Co de Phone Number [facility] [address] [place] [phone] * C-reactive Protein (12/05/2024 6:06 PM EDT) C Reactive Protein <0.10 < or = 0.50 mg/dL [facility] 12/05/2024 6:06 PM EDT 12/05/2024 6:12 PM EDT us Generic External Data Provider LAB BLOOD ORDERAB LES Final Result Performing Organization Address [facility] Co de Phone Number [facility] [address] [place] [phone] * hCG, Total, Quantitative (12/05/2024 6:06 PM EDT) HCG Quantitative <2 mIU/mL [facility] Comment:Weeks post LMP Appr oximate hCG(Last Menstrual Period) Range (mIU/ml)3 - 4 weeks 9 - 1304 - 5 weeks 75 - 2,6005 - 6 weeks 850 - 20,8006 - 7 weeks 4000 - 100,2007 - 12 weeks 11,500 - 289,02923 - 16 weeks 18,300 - 137,08720 - 29 weeks (2nd trimester) 1,400 - 53,03042 - 41 weeks (3rd trimester) 940 - 60,000The Alvarado B-hCG assay is used for the early detection ofpregnancy; it cannot be used to diagnose any conditionunrelated to . If a B-hCG level is not supportedby the clinical evidence, results should be confirmed by analternative method (qualitative urine hCG, for example). 12/05/2024 6:06 PM EDT 12/05/2024 6:12 PM EDT Generic External Data Provider LAB BLOOD ORDERAB LES Final Result Performing Organization Address [facility]/ZIP Co de Phone Number [facility] [address] [place] [phone] * Magnesium (12/05/2024 6:06 PM EDT) Magnesium 1.8 1.6 - 2.6 mg/dL [facility] 12/05/2024 6:06 PM EDT 12/05/2024 6:12 PM EDT Generic External Data Provider LAB BLOOD ORDERAB LES Final Result Performing Organization Address [facility] Co de Phone Number [facility] [address] [place] [phone] * Lipase (12/05/2024 6:06 PM EDT) Lipase 30 8 - 78 U/L [facility] 12/05/2024 6:06 PM EDT 12/05/2024 6:12 PM EDT us Generic External Data Provider LAB BLOOD ORDERAB LES Final Result [facility] [address] [place] [address] [phone] * (ABNORMAL) Comprehensive Metabolic Panel (12/05/2024 6:06 PM EDT) Sodium 138 135 - 145 mmol/L [facility] Potassium 3.9 3.3 - 5.1 mmol/L [facility] Chloride 109(H) 96 - 108 mmol/L [facility] Carbon Dioxide 23 22 - 29 mmol/L [facility] Anion Gap 10(L) 12 - 20 [facility] Urea Nitrogen (BUN) 7(L) 9 - 16 mg/dL [facility] Creatinine, Serum 0.71 0.5 - 1.4 mg/dL [facility] Creatinine Clr Calc Pharmacy 105.0 [facility] Comment:Provided height and weight: 165.1 cm,54.431 kg.eGFR (calculated from the MDRD study equation) and eCrCl(calculated from the Cockcroft-Gault equation) are based ondifferent parameters and may not yield comparable results.If eCrCl result is absurd, please check patient'sheight/weight. Estimated Glomerular Filt Rate >60 [facility] Comment:Chronic Kidney Disea se: Estimated GFR < 60 mL/min/1.61u2Yqgmjy Kidney Disease: Estimated GFR < 15 mL/min/1.73m2 Glucose 173(H) 60 - 115 mg/dL [facility] Calcium 9.6 8.4 - 10.2 mg/dL [facility] Bilirubin, Total 0.4 0.0 - 1.0 mg/dL [facility] Aspartate Amino Transferase 25 5 - 31 U/L [facility] Alanine Aminotransferase 15 0 - 31 U/L [facility] Total Protein 7.7 6.5 - 8.0 g/dL [facility] Albumin Level 4.9 3.5 - 5.0 g/dL [facility] Alkaline Phosphatase 43 39 - 117 U/L [facility] 12/05/2024 6:06 PM EDT 12/05/2024 6:12 PM EDT Generic External Data Provider LAB BLOOD ORDERAB LES Final Result [facility] [address] [place] [address] [phone] * POCT Urine (12/05/2024 4:27 PM EDT) Preg Test, Ur Negative Negative, Indeterminate, None Detected, Invalid, Specimen unsatisfactory for evaluation, Weakly Positive, 2+ QC Media Lot # [id number] Lot# Expiration Date 047 Urine 12/05/2024 4:27 PM EDT Trev Dominguez [...] Final Result from Last 3 Months [facility] Care Teams Atomic Spectroscopist Relationship Specialty Start Date End Date Denisse Wood NP [address] [place] [address] PCP - General Family Medicine 10/24/23
== END 2025-01-03 15:20 | disposition home or self-care (01) ==
LOC: HO.HHCX 15:19
PROVIDERS: Visit Provider Family Medicine
DX: M79.671 Pain in right foot (principal); M25.571 Pain in right ankle and joints of right foot
CPT/HCPCS: 73610; 73630

== ENCOUNTER → 2025-01-03 15:19 | Outpatient (BNV) | payer OTHER, SELFPAY | PROVIDERS: Visit Provider Radiology Diagnostic Radiology | DX: S90.01XA Contusion of right ankle, initial encounter (principal); M79.671 Pain in right foot | CPT/HCPCS: 73610; 73630 ==